=== PATIENT | female | born 1940 | race African-American/Black ===

== ENCOUNTER 2017-10-03 10:56 | Observation (INO) | payer MEDICARE, OTHER ==
[2017-10-03 12:04] LABS: Hemoglobin 11.2 g/dL (12.0-16.0); Mean Corpuscular HGB CONC 29.7 g/dL (32.0-36.0); Mean Corpuscular Hemoglobin 29.3 pg (27.0-31.0); Mean Corpuscular Volume 98.7 fl (81.0-99.0); Mean Platelet Volume 8.5 fL (7.4-10.4); Platelet Count 143 thou/uL (130-400); RBC Distribution Width 11.5 % (11.5-14.5); Red Blood Cell (RBC) Count 3.81 mill/uL (4.20-5.40); White Blood Cell (WBC) Count 5.4 thou/uL (4.8-10.8)
--- NOTE | 2017-10-03 12:11 | RAD ---
PORTABLE CHEST 1 VIEW: DATE: 10/03/17. TIME: 11:20 a.m. HISTORY: Comparison is made to the exam of 06/09/17. The heart size is prominent. The lungs are well expanded without focal areas of consolidation, pneum othorax, ha pulmonary edema, or pleural effusions. There are degenerative changes in the spine. IMPRESSION: No acute process. POS: CHAZ
[2017-10-03 12:23] LABS: ALT (SGPT) 121 U/L (8-55); AST (SGOT) 127 U/L (5-34); Albumin 3.5 g/dL (3.4-4.8); Alkaline Phosphatase 656 U/L (40-150); Anion Gap 17 mmol/L (10-20); BUN (Urea Nitrogen) 35 mg/dL (9.8-20.1); Bilirubin, Total 0.6 mg/dL (0.2-1.2); Calc. Creatinine Clearance 0 mL/min (70-130); Calcium 9.5 mg/dL (7.8-10.44); Carbon Dioxide 17 mmol/L (23-31); Chloride 112 mmol/L (98-107); Estimated GFR-MDRD 27; Globulin 3.5 g/dL (2.4-3.5); Glucose 126 mg/dL (83-110); Potassium 4.2 mmol/L (3.5-5.1); Sodium 142 mmol/L (136-145)
[2017-10-03 12:24] LABS: #Lymphocytes 1.1 thou/uL (1.20-3.40); #Monocytes 0.7 thou/uL (0.11-0.59); #Neutrophils 3.6 thou/uL (1.40-6.50); %Basophils 0.3 % (0.0-1.0); %Eosinophils 0.5 % (0.0-10.0); %Lymphocytes 19.5 % (21.0-51.0); %Monocytes 12.9 % (0.0-10.0); %Neutrophils 66.9 % (42.0-75.0); MDiff Complete? YES; PLT Morphology Comment Appears Adequate; Polychromasia SLIGHT = 2-3 cells (100X) (0-2/hpf)
[2017-10-03 13:01] LABS: Bilirubin Small (Negative); Blood, Urine Negative (Negative); Clarity CLOUDY (Clear); Glucose, Urine (Dipstick) Negative (Negative); Leukocyte Negative (Negative); Nitrite Negative (Negative); Protein, Urine (Dipstick) 100 mg/dL (Neg-Trace); Specific Gravity, Urine 1.021 (1.002-1.036); pH, Urine 5.5 (5.0-9.0)
[2017-10-03 13:04] LABS: Bacteria/HPF None Seen HPF (None Seen); RBC/HPF 0-3 HPF (0-3); Squamous Epithelial 0-3 HPF (0-3); WBC/HPF 0-3 HPF (0-3)
[2017-10-03 13:06] LABS: Pathc Cast-AUWi Flag 3.25 (0-2.49); Yeast-AUWi Flag 29.8 (0-25.0)
[2017-10-03] MEDS ORDERED: Oseltamivir 75 MG CAP PO SCH (13:15)
[2017-10-03 13:19] LABS: Crystals/HPF 2+ AMORPH URATES HPF (Negative); Hyaline Casts/LPF 0-3 HYALINE CAST LPF (0-3 Hyaline); Other Casts/LPF 4-6 COARSE GRAN LPF (0-3 Hyaline); Yeast-All Forms None Seen HPF (None Seen)
--- NOTE | 2017-10-03 15:54 | ULT ---
ULTRASOUND ABDOMEN LIMITED: (RIGHT UPPER QUADRANT) DATE: 10/03/17. HISTORY: A 77-year-old female with fever. Dementia. FINDINGS: The patient is combative, and this is a technically difficult examination. The liver has diffusely h eterogeneous echotexture. The hepatic margins are diffusely mildly nodular. The pancreas is abnorma lly diffusely very hypoechoic, which is atypical for this age group. The gallbladder is surgically a bsent. There is a structure in the gallbladder fossa with echogenic mobile material in the nondepend ent portion of it, probably representing gas within a loop of proximal duodenum or colon. The right kidney is surgically absent. Common duct caliber is 5 mm. IMPRESSION: 1. Limited study because of the patient's inability to cooperate. 2. Abnormal liver, probably representing cirrhosis. Very extensive metastatic disease of the liver can also have this appearance, but cirrhosis is favored. 3. Status post cholecystectomy. 4. Status post right nephrectomy. 5. Abnormal appearance of the pancreas. Recommend correlation with serum amylase and lipase to rule out the possibility of acute pancreatitis. WILLIE Bourgeois POS: SHAY
[2017-10-03] MEDS ORDERED: Diabetic Tussin 200 MG/10 ML UDCUP PO PRN (16:29)
[2017-10-03] MEDS ORDERED: Loperamide HCl 2 MG CAP PO PRN (16:29)
[2017-10-03] MEDS ORDERED: Artificial Tears 18 DROP/0.9 ML EA EYE PRN (16:29)
[2017-10-03] MEDS ORDERED: Ondansetron HCl/PF 4 MG/2 ML Vial IVP PRN (16:29)
[2017-10-03] MEDS ORDERED: Senokot 8.6 MG TAB PO PRN (16:29)
[2017-10-03] MEDS ORDERED: Eucerin (Mineral Oil/Petrolatum,White) 30 gm Jar TOP PRN (16:29)
[2017-10-03] MEDS ORDERED: Chloraseptic Spray 180 ml Bottle PO PRN (16:29)
[2017-10-03] MEDS ORDERED: Sodium Chloride 0.65% Nasal 44 ML BOT EA NARE PRN (16:29)
[2017-10-03] MEDS ORDERED: hydrALAZINE 20 MG/ML VIAL SLOW IVP PRN (16:29)
[2017-10-03] MEDS ORDERED: Loratadine 10 MG TAB PO PRN (16:29)
[2017-10-03] MEDS ORDERED: HYDROcodone/Acetaminophen 5/325 mg Tablet PO PRN (16:29)
[2017-10-03] MEDS ORDERED: traMADol HCl 50 MG TAB PO PRN (16:29)
[2017-10-03] MEDS ORDERED: Acetaminophen 325 MG TAB PO PRN (16:29)
[2017-10-03] MEDS ORDERED: Mag-Al 1200 mg/1200 mg/30 ML UDCUP PO PRN (16:29)
[2017-10-03] MEDS ORDERED: Milk Of Magnesia 30 ML UDCUP PO PRN (16:29)
[2017-10-03] MEDS ORDERED: Ondansetron ODT 4 MG TAB PO PRN (16:29)
--- NOTE | 2017-10-03 16:30 | HP ---
PRIMARY CARE PHYSICIAN: NABEEL Chery REASON FOR ADMISSION: Acute on chronic kidney failure, abnormal LFT, influenza A. HISTORY OF PRESENT ILLNESS: A 77-year-old -[place] female who was brought to emergency room by family member because she is having upper respiratory infections for last 1 week. For the last 2 days, she has increasing cough and shortness of breath. She was having fever. Family member reports that patient's son was having flu-like illness and subsequently she was also affected. For the last 1 week, patient was not eating significant enough and she was also not drinking enough. She did not have any nausea, vomiting, diarrhea. She did not have any abdominal pain, melena, hematochezia. Dominick drake denies any sore throat. The patient denies any urinary tract infection symptoms. Patient is n onverbal and the patient is not able to provide any history, but patient's daughter is present at bed side who provided most of the history. Today in the emergency room, routine evaluation showed influenza A, acute on chronic kidney failure a nd abnormal LFT. We are keeping this patient in the hospital for observation for hydration. REVIEW OF SYSTEMS: All review of systems tried to review with the patient, but unable to review at t his point because of nonverbal status. PAST MEDICAL HISTORY: Chronic kidney disease stage III, hypertension, history of CVA, dyslipidemia, history of gout, history of intracranial bleeding after skull base fracture. PAST SURGICAL HISTORY: Cholecystectomy, hysterectomy, right arm surgery, kidney stone removal, bilat eral cataract surgery. PAST PSYCHIATRIC HISTORY: Alzheimer's dementia. SOCIAL HISTORY: Patient lives at home. She smokes cigarettes daily about half pack per day. She li ves with family. She is trying to cutdown smoking and now she reduced to smoking 3 cigarettes a day. No history of alcohol abuse. No history of illicit drug abuse. FAMILY HISTORY: Multiple, sisters has a history of diabetes, hypertension, heart disease and grandda ughter diagnosed with sarcoma. ALLERGIES: No known drug allergy. CURRENT HOME MEDICATIONS: Lipitor 20 mg p.o. at bedtime, clonidine 0.3 once a week, Lasix 20 mg p.o. daily, metoprolol 25 mg p.o. b.i.d., amlodipine 5 mg twice daily, risperidone 1 mg p.o. at bedtime. EMERGENCY ROOM COURSE: Patient has received Tamiflu and IV fluid 2 liter. PHYSICAL EXAMINATION: VITAL SIGNS: Currently, blood pressure 183/57, pulse 73, respiratory rate 22, temperature 98.1, satu ration 100% on room air, weight 54.4 kilograms. GENERAL: Patient is currently alert, awake, no acute distress, appears dehydrated, hypertensive, non verbal. HEAD: Normocephalic, atraumatic. EYES: Pupils round, reactive to light. Extraocular muscle intact. ENT: Dry appearing mucous membranes. No oral lesions. No pharyngeal erythema, no exudate. NECK: Supple, no JVD, no thyromegaly, no carotid bruit, no jugular venous distention. LUNGS: Clear to auscultation without any rhonchi or rales. CARDIAC: S1 and S2 regular. Systolic murmur present parasternal area. No gallop, no rub. ABDOMEN: Soft, bowel sounds present. On deep palpation in the right upper quadrant, patient does no t have any tenderness or masses. No peritoneal signs, no suprapubic tenderness. BACK: Examination unremarkable, no CVA tenderness. EXTREMITIES: Upper extremity; passive movements of all joints are normal. Lower extremity; passive movements of all joints are normal. NEUROLOGIC: The patient does have left-sided residual weakness. Her speech is absent. She withdraw s to pain. Detailed neurological examination is not possible because of nonverbal status. SKIN: No skin rash. PSYCHIATRIC: Normal affect. IMAGING DATA AND SIGNIFICANT LABORATORY DATA: 1. EKG based on my review reveals normal sinus rhythm, LVH, left atrial enlargement. 2. Chest x-ray based on my review, no acute cardiopulmonary process. 3. CBC: WBC 5.4, hemoglobin 11.2, platelets 143. 4. BMP: Sodium 142, potassium 4.2, chloride 112, carbon dioxide 17, anion gap 17, BUN 35, creatinin e 2.13, glucose 126, calcium 9.5. 5. LFT: AST 127, ALT 21, alkaline phosphatase 656, albumin 3.5. Urinalysis unremarkable. Influenz a A positive. ASSESSMENT AND PLAN/IMPRESSION: 1. Acute on chronic kidney failure, baseline chronic kidney disease stage 3. Most likely prerenal e tiology. The patient has poor p.o. intake that might have contributed to her renal insufficiency. T he patient will need hydration. At this point, we will start dextrose half normal saline at 75 mL pe r hour and we will repeat BMP tomorrow. The patient has baseline chronic kidney disease stage 3. 2. Hyperchloremic acidosis. Because of this, we will try to use dextrose with normal saline and reddy snider also continue with sodium bicarbonate 325 mg p.o. b.i.d. We will repeat BMP tomorrow. 3. Abnormal liver function tests. Etiology uncertain, but patient has worsening of LFT, most likely related with Lipitor use. We will rule out CBD dilatation. This patient already has cholecystectom y done. Patient does not have any tenderness, does not have any fever, cholangitis unlikely. We reddy agatha repeat LFTs tomorrow and we will also check hepatitis profile. 4. Influenza A. Based on renal dose, we will continue Tamiflu 75 mg p.o. daily. 5. Moderate protein calorie malnutrition. The patient will need nutritional support while in hospit al. 6. Hypertension. We will continue amlodipine 5 mg p.o. b.i.d., Catapres patch every week, metoprolo l 25 mg twice daily and we will use p.r.n. basis hydralazine and clonidine. 7. Dyslipidemia. Because of abnormal liver function tests, we will hold on Lipitor therapy only for today and will repeat liver function test tomorrow and then we will start that medication. 8. Deep venous thrombosis prophylaxis not needed because we are expecting discharge in 24 hours. 9. Gastrointestinal prophylaxis, Pepcid 20 mg p.o. daily. CODE STATUS: The patient is FULL CODE and patient's daughter is surrogate decision maker. Disposition plan based on clinical course. At this point, we are starting with observation status, b ut if the patient's condition does not improve, then we will consider changing to inpatient status. Plan of care discussed with the patient and family member at bedside in the emergency room.
[2017-10-03 18:08] LABS: Creatinine, Urine 177.83 mg/dL (47-110)
[2017-10-03] MEDS: Dextrose 5 %-0.45 % NaCl 1,000 ML IV SCH (18:24)
[2017-10-03] MEDS: Sodium Bicarbonate Tab 325 MG TAB PO SCH (21:09)
[2017-10-03] MEDS: Metoprolol Tartrate 25 MG TAB PO SCH (21:09)
[2017-10-03] MEDS: Amlodipine 5 MG TAB PO SCH (21:09)
[2017-10-03] MEDS: cloNIDine 0.1 MG TAB PO PRN (21:11)
[2017-10-04] MEDS: Dextrose 5 %-0.45 % NaCl 1,000 ML IV SCH ×2 (05:34→21:49)
[2017-10-04 05:55] LABS: #Eosinphils 0.1 thou/uL (0.0-0.7); #Lymphocytes 0.9 thou/uL (1.20-3.40); #Monocytes 0.3 thou/uL (0.11-0.59); #Neutrophils 1.6 thou/uL (1.40-6.50); %Basophils 1.3 % (0.0-1.0); %Eosinophils 2.5 % (0.0-10.0); %Lymphocytes 29.8 % (21.0-51.0); %Monocytes 11.6 % (0.0-10.0); %Neutrophils 54.8 % (42.0-75.0); Mean Corpuscular Hemoglobin 29.8 pg (27.0-31.0); Mean Corpuscular Volume 96.2 fl (81.0-99.0); Platelet Count 121 thou/uL (130-400); RBC Distribution Width 11.3 % (11.5-14.5); Red Blood Cell (RBC) Count 3.03 mill/uL (4.20-5.40); White Blood Cell (WBC) Count 2.8 thou/uL (4.8-10.8)
[2017-10-04 06:10] LABS: ALT (SGPT) 84 U/L (8-55); AST (SGOT) 79 U/L (5-34); Albumin 2.8 g/dL (3.4-4.8); Alkaline Phosphatase 530 U/L (40-150); Anion Gap 10 mmol/L (10-20); BUN (Urea Nitrogen) 29 mg/dL (9.8-20.1); Bilirubin, Total 0.4 mg/dL (0.2-1.2); Calc. Creatinine Clearance 0 mL/min (70-130); Calcium 8.5 mg/dL (7.8-10.44); Carbon Dioxide 20 mmol/L (23-31); Chloride 116 mmol/L (98-107); Estimated GFR-MDRD 31; Globulin 2.7 g/dL (2.4-3.5); Glucose 124 mg/dL (83-110); Potassium 3.9 mmol/L (3.5-5.1); Protein, Total 5.5 g/dL (6.0-8.3); Sodium 142 mmol/L (136-145)
[2017-10-04 07:24] VITALS: BMI 20.5
[2017-10-04] MEDS ORDERED: FLU VACC TS2017-18 (>65YR) 0.5 ML SYRINGE IM ONE (09:00)
[2017-10-04] MEDS: Metoprolol Tartrate 25 MG TAB PO SCH ×2 (09:15→21:47)
[2017-10-04] MEDS: Famotidine 20 MG TAB PO SCH (09:15)
[2017-10-04] MEDS: Amlodipine 5 MG TAB PO SCH ×2 (09:15→21:47)
[2017-10-04] MEDS: Sodium Bicarbonate Tab 325 MG TAB PO SCH ×2 (09:15→21:49)
[2017-10-04] MEDS: Oseltamivir 6 MG/ML ORAL SUSP PO SCH (09:32)
--- NOTE | 2017-10-04 10:16 | PDOC.PN ---
- Subjective Encounter Start Date: 10/04/17 Encounter Start Time: 07:50 Patient seen and examined. No new complaints. No overnight events - Objective Resuscitation Status: Resuscitation Status FULL:Full Resuscitation MAR Reviewed: Yes Vital Signs & Weight: Vital Signs (12 hours) Temp Pulse Resp BP BP Pulse Ox 10/04/17 09:23 97.4 F L 69 20 155/82 H 100 10/04/17 09:15 155/82 H 10/04/17 04:41 98.3 F 89 16 150/69 H 100 10/04/17 00:15 97.8 F 89 16 132/68 100 Weight Weight 119 lb 14.903 oz I&O: 10/03/17 10/04/17 10/05/17 06:59 06:59 06:59 Intake Total 2150 Balance 2150 Result Diagrams: 10/04/17 05:04 10/04/17 05:04 Radiology Reviewed by me: Yes (US abdomen) Phys Exam - Physical Examination Constitutional: NAD HEENT: PERRLA, moist MMs, sclera anicteric Neck: no JVD, supple Respiratory: no wheezing, no rales, no rhonchi Cardiovascular: RRR, no significant murmur, no rub Gastrointestinal: soft, non-tender, no distention, positive bowel sounds Musculoskeletal: no edema, pulses present Neurological: non-focal Lymphatic: no nodes Psychiatric: normal affect Skin: no rash, normal turgor Dx/Plan (1) Acute worsening of stage 3 chronic kidney disease Code(s): N18.3 - CHRONIC KIDNEY DISEASE, STAGE 3 (MODERATE) Status: Acute (2) Dehydration Code(s): E86.0 - DEHYDRATION Status: Acute (3) Hyperchloremic acidosis Code(s): E87.2 - ACIDOSIS Status: Acute (4) Influenza A Code(s): J10.1 - FLU DUE TO OTH IDENT INFLUENZA VIRUS W OTH RESP MANIFEST Status: Acute (5) Transaminitis Code(s): R74.0 - NONSPEC ELEV OF LEVELS OF TRANSAMNS & LACTIC ACID DEHYDRGNSE Status: Acute (6) Anemia, normocytic normochromic Code(s): D64.9 - ANEMIA, UNSPECIFIED Status: Chronic (7) COPD (chronic obstructive pulmonary disease) Status: Chronic Qualifiers: (8) Dyslipidemia Code(s): E78.5 - HYPERLIPIDEMIA, UNSPECIFIED Status: Chronic (9) FTT (failure to thrive) in adult Status: Chronic (10) H/O: CVA (cerebrovascular accident) Code(s): Z86.73 - PRSNL HX OF TIA (TIA), AND CEREB INFRC W/O RESID DEFICITS Status: Chronic (11) Hypertension Code(s): I10 - ESSENTIAL (PRIMARY) HYPERTENSION Status: Chronic (12) Protein-calorie malnutrition, moderate Code(s): E44.0 - MODERATE PROTEIN-CALORIE MALNUTRITION Status: Chronic (13) Tobacco abuse Code(s): Z72.0 - TOBACCO USE Status: Chronic (14) Vitamin D deficiency Code(s): E55.9 - VITAMIN D DEFICIENCY, UNSPECIFIED Status: Chronic - Plan cont current plan of care * renal function and LFT improving * will consult GI for abonormal LFT * continue IVF * supportive care * medication reviewed as below * symptomatic treatment. * will check CMP at 1 pm * possible discharge later today Review of Systems - Review of Systems Other: unable to review as pt is non verbal - Medications/Allergies Allergies/Adverse Reactions: Allergies Allergy/AdvReac Type Severity Reaction Status Date / Time Penicillins Allergy Verified 06/05/17 23:21 Medications: Current Medications Acetaminophen (Tylenol) 650 mg PO Q4H PRN PRN Reason: Headache/Fever or Pain Hydrocodone Bitart/Acetaminophen ([place] 5/325) 1 tab PO Q4H PRN PRN Reason: Moderate Pain (4-6) Al Hydroxide/Mg Hydroxide (Maalox) 30 ml PO Q6H PRN PRN Reason: Heartburn or Indigestion Albuterol/Ipratropium (Duoneb) 3 ml NEB [id number] PRN PRN Reason: SOB &/or Wheezing Amlodipine Besylate (Norvasc) 5 mg PO BID [facility] Last Admin: 10/04/17 09:15 Dose: 5 mg Artificial Tears (Tears Naturale) 0 drop EA EYE PRN PRN PRN Reason: Dry Eyes Aspirin (Aspirin Chewable) 81 mg PO DAILY [facility] Last Admin: 10/04/17 09:15 Dose: 81 mg Clonidine (Catapres) 0.1 mg PO Q4H PRN PRN Reason: SBP GREATER THAN 160 Last Admin: 10/03/17 21:11 Dose: 0.1 mg Clonidine (Hcdamjis-Vdj-7) 0.3 mg TD Q7DAYS [facility] Famotidine (Pepcid) 20 mg PO DAILY [facility] Last Admin: 10/04/17 09:15 Dose: 20 mg Guaifenesin (Robitussin Sf) 200 mg PO Q4H PRN PRN Reason: Cough Hydralazine HCl (Apresoline) 10 mg SLOW IVP Q4H PRN PRN Reason: Systolic BP > 180 Dextrose/Sodium Chloride (D5 1/2 Ns) 1,000 mls @ 75 mls/hr IV .[id number] [facility] Last Admin: 10/04/17 05:34 Dose: 1,000 mls Loperamide HCl (Imodium) 2 mg PO PRN PRN PRN Reason: Diarrhea/Loose Stools Loratadine (Claritin) 10 mg PO DAILYPRN PRN PRN Reason: Sinus Symptoms Magnesium Hydroxide (Milk Of Magnesium) 30 ml PO DAILYPRN PRN PRN Reason: Constipation Metoprolol Tartrate (Lopressor) 25 mg PO BID [facility] Last Admin: 10/04/17 09:15 Dose: 25 mg Mineral Oil/White Petrolatum (Eucerin Cream) 0 gm TOP BIDPRN PRN PRN Reason: Dry Skin Ondansetron HCl (Zofran Odt) 4 mg PO Q6H PRN PRN Reason: Nausea/Vomiting Ondansetron HCl (Zofran) 4 mg IVP Q6H PRN PRN Reason: Nausea/Vomiting Oseltamivir Phosphate (Tamiflu) 30 mg PO DAILY [facility] Stop: 10/13/17 09:01 Last Admin: 10/04/17 09:32 Dose: 30 mg Phenol (Chloraseptic [place] 180 Ml Bot) 0 ml PO PRN PRN PRN Reason: Sore Throat Senna (Senokot) 2 tab PO HSPRN PRN PRN Reason: Constipation Sodium Bicarbonate (Bicarbonate, Sodium) 325 mg PO BID [facility] Last Admin: 10/04/17 09:15 Dose: 325 mg Sodium Chloride ([place] Nasal [place] 0.65%) 0 ml EA NARE QIDPRN PRN PRN Reason: Nasal Congestion Tramadol HCl (Ultram) 50 mg PO Q6H PRN PRN Reason: Moderate Pain (4-6)
--- NOTE | 2017-10-04 11:20 | DIS ---
PRIMARY CARE PHYSICIAN: [facility] call admission. DATE OF ADMISSION: 10/03/2017 DATE OF DISCHARGE: 10/04/2017 DISCHARGE DISPOSITION: Home. PRIMARY DISCHARGE DIAGNOSES: 1. Acute on chronic kidney failure, baseline chronic kidney disease stage 3. 2. Dehydration. 3. Hyperchloremic acidosis. 4. Influenza A. 5. Abnormal liver function tests related with cirrhosis. SECONDARY DISCHARGE DIAGNOSES: Vitamin D deficiency, tobacco abuse disorder, moderate protein calori e malnutrition, hypertension, history of CVA with a nonverbal status, failure to thrive, dyslipidemia , COPD, anemia, normocytic, normochromic, chronic kidney disease stage 3. PRIMARY PROCEDURE/OPERATION: None. RADIOLOGICAL INVESTIGATION: Abdominal ultrasound suspected cirrhosis. chest x-ray was normal. Influenza A was positive. SIGNIFICANT LABS: WBC 2.8, hemoglobin 9.0, platelets 121. Sodium 142, potassium 3.9, BUN 29, creati nine 1.88, calcium 8.5, AST 79, ALT 84, alkaline phosphatase 530, albumin 2.8. Urinalysis unremarkab le. Urine protein 107, urine creatinine 177. Urine sodium 32. DISCHARGE MEDICATIONS: Norvasc 5 mg p.o. b.i.d., aspirin 81 mg p.o. daily, clonidine 0.3 mg transder mal every week, Lipitor 20 mg p.o. at bedtime, Pepcid 20 mg p.o. daily, Lopressor 25 mg p.o. b.i.d., Tamiflu 30 mL p.o. daily for 5 days, risperidone 1 mg sublingual p.o. at bedtime, sodium bicarbonate 325 mg p.o. b.i.d. CONTRAINDICATIONS: None. CODE STATUS: FULL CODE. INPATIENT CONSULTANTS: KATY Madison for abnormal liver function tests. ALLERGIES: PENICILLIN. TEST RESULTS PENDING ON DISCHARGE: None. DISCHARGE PLAN: Post hospital, the patient will follow up with primary care physician. HOSPITAL COURSE: A 77-year-old female who has nonverbal status from previous stroke. She was bob t to the ER because the patient was becoming more and more weak. She was dehydrated. She was having cough and fever. Her influenza A was positive. She was clinically dehydrated. She also had abnorm al LFTs and that is why ultrasound was done. Ultrasound showed cirrhotic type findings and that is w hy we consulted GI before discharge for his opinion. The patient's LFTs are improving and renal func tion is improving with IV fluid as well. We will repeat CMP at 1:00 p.m. and if it continues to improve and GI okay, then we will consider dis charging her home with outpatient followup. The patient and family members advised to take care of h er dehydration with oral intake. Nutritional support advised. Smoking cessation counseling given. The patient seen and examined at bedside. Please see my progress note from today for further details . ADDENDUM: (10/05/17 at 11:04 am) This patient was planned for discharge yesterday, but GI was consu lted for her abnormal LFTs and looking at her old record, she has abnormal LFT for a long period of t yadira. Now she has suspected cirrhosis and that is why necessary workup can be done on an outpatient b asis. The patient will follow up with conservation educator for further evaluation. The patient is currently medically stable for discharge. Please see my progress note from today for further details. The patient is seen and examined at the bedside today.
[2017-10-04 13:38] LABS: ALT (SGPT) 83 U/L (8-55); AST (SGOT) 83 U/L (5-34); Albumin 2.6 g/dL (3.4-4.8); Alkaline Phosphatase 523 U/L (40-150); Anion Gap 9 mmol/L (10-20); BUN (Urea Nitrogen) 27 mg/dL (9.8-20.1); Bilirubin, Total 0.3 mg/dL (0.2-1.2); Calc. Creatinine Clearance 22 mL/min (70-130); Calcium 8.3 mg/dL (7.8-10.44); Carbon Dioxide 20 mmol/L (23-31); Chloride 115 mmol/L (98-107); Estimated GFR-MDRD 34; Globulin 2.6 g/dL (2.4-3.5); Glucose 113 mg/dL (83-110); Potassium 3.8 mmol/L (3.5-5.1); Protein, Total 5.2 g/dL (6.0-8.3); Sodium 140 mmol/L (136-145)
--- NOTE | 2017-10-04 22:01 | CON ---
DATE OF CONSULTATION: 10/04/2017 REASON FOR CONSULTATION: Transaminitis. CONSULTING PHYSICIAN: Dr. Prashanth Montoya. HISTORY OF PRESENT ILLNESS: The patient is a 77-year-old female with past medical history of vitamin D deficiency, hyperlipidemia, hypertension, CVA, chronic kidney disease stage 3, chronic obstructive pulmonary disease, failure to thrive with moderate calorie deficiency, gout, Alzheimer's dementia, and chronic transaminitis. Initially presenting with complaints of increased cough and shortness of breath. Upon evaluation in the ER, she was noted to have fever and was ultimately positive for influenza A. She was ultimately admitted to the hospital for observation and rehydration due to poor oral intake. Upon evaluation of routine labs obtained in the ER, she was noted to have a mild transaminitis indicative of liver inflammation with consultation of GI at that time. Of note, patient was seen in the outpatient GI clinic in 02/2012 for elevated LFTs. A workup was ordered at that time, but the patient never followed up nor obtain the labs for evaluation. Also, of note, per nursing staff, they state that she has been having increased diarrhea bowel movements with approximately 3 to 5 liquid bowel movements today with minimal amounts of mucus. REVIEW OF SYSTEMS: Cannot be obtained due to the nature of the patient's dementia. PAST MEDICAL HISTORY: As per HPI. PAST SURGICAL HISTORY: Cholecystectomy, hysterectomy, right arm surgery, kidney stone removal, bilateral cataract surgery. FAMILY HISTORY: Diabetes, hypertension, heart disease, sarcoma, no stated GI malignancies. SOCIAL HISTORY: She smokes about a half pack of cigarettes daily. No history of alcohol abuse or illicit drug use. ALLERGIES: No known drug allergies. CURRENT HOME MEDICATIONS: Lipitor 20 mg at bedtime, clonidine 0.3 mg once a week, Lasix 20 mg daily, metoprolol 25 mg twice daily, amlodipine 5 mg twice daily, risperidone 1 mg at bedtime. INPATIENT MEDICATIONS: Reviewed. PHYSICAL EXAMINATION: VITAL SIGNS: Temperature 97.3, pulse 66, blood pressure 166/67, respiratory rate 14, satting 100% on room air. GENERAL: The patient is alert, awake, in no acute distress. Patient is oriented x2. HEENT: Normocephalic, atraumatic. Pupils are equal, round, reactive to light. Extraocular movements intact. NECK: Supple, with no discernible JVD. CARDIOVASCULAR: Regular rate and rhythm with no discernible murmurs, gallops, or rubs. RESPIRATORY: Clear to auscultation bilaterally with no discernible wheezes or rales. ABDOMEN: Soft, nontender, nondistended. Normoactive bowel sounds. No hepatosplenomegaly noted. EXTREMITIES: No cyanosis, clubbing, or edema. LABORATORY DATA: CBC with a white blood cell count of 2.8, hemoglobin 9, hematocrit 29.1, platelets 121. Chemistry with a sodium of 140, potassium 3.8, chloride 115, carbon dioxide 20, BUN 27, creatinine 1.75, glucose 113, AST 83, ALT 83, alkaline phosphatase 523, total bilirubin 0.3. IMAGING STUDIES: Right upper quadrant ultrasound obtained on 10/03/2017 showing diffusely heterogeneous echotexture within the liver with a diffusely mildly nodular contour. The gallbladder was surgically absent with echogenic mobile material within the gallbladder fossa, possibly representing a cast within a loop of proximal duodenum or colon. Right kidney is surgically absent. Common bile duct is approximately 5 mm. However, the study was limited due to the patient's inability to cooperate with a technically difficult examination. ASSESSMENT AND PLAN: Patient is a 77-year-old female with past medical history of vitamin D deficiency, hyperlipidemia, hypertension, CVA, chronic kidney disease stage 3, COPD, gout, failure to thrive, Alzheimer's dementia, and chronic transaminitis presenting with continued elevation in LFTs. Transaminitis Patient is presenting with a chronic history of transaminitis with mild elevation in AST, ALT and alkaline phosphatase that has been present since at least February 2012 when she was seen in the outpatient GI clinic. Workup was ordered at that time with patient unable to comply with completion of this workup. Currently, the degree of transaminitis is more consistent with a cholestatic pattern. Given the significant elevation in alkaline phosphatase, however, with thrombocytopenia and nodular morphology on right upper quadrant ultrasound it is concerning for presence of cirrhosis. Current INR is unable to be reviewed making calculation of MELD and Child-Duenas classification difficult. Extensive workup was ordered in 2011, but never obtained so would recommend obtaining full liver workup at this time, given the chronic elevation in transaminases predominantly alkaline phosphatase. RECOMMENDATIONS: 1. Would obtain full liver workup to obtain labs including alpha 1 antitrypsin , NOMI, AMA, ceruloplasmin, iron profile with ferritin and TIBC. Chronic hepatitis panel, ASMA, and obtain alkaline phosphatase isoenzymes to determine if degree of elevation is consistent with liver origin. 2. Based on the above workup with tailored treatment toward possible infected condition; however, with patient's advanced age and advanced Alzheimer's dementia treatment for chronic hepatitis C, and/or liver transplantation is most likely unavailable. 3. We will continue to trend INR and would perform neuro checks daily for determination of possible encephalopathy and worsening of the liver disease. 4. Patient is stable for discharge and follow up in the GI clinic within 2 weeks MTDD
[2017-10-05] MEDS: cloNIDine 0.1 MG TAB PO PRN (02:14)
[2017-10-05] MEDS: Dextrose 5 %-0.45 % NaCl 1,000 ML IV SCH (09:12)
[2017-10-05] MEDS: Sodium Bicarbonate Tab 325 MG TAB PO SCH (09:14)
[2017-10-05] MEDS: Amlodipine 5 MG TAB PO SCH (09:14)
[2017-10-05] MEDS: Famotidine 20 MG TAB PO SCH (09:15)
[2017-10-05] MEDS: Oseltamivir 6 MG/ML ORAL SUSP PO SCH (09:15)
[2017-10-05] MEDS: Metoprolol Tartrate 25 MG TAB PO SCH (09:15)
--- NOTE | 2017-10-05 10:31 | PDOC.PN ---
- Subjective Encounter Start Date: 10/05/17 Encounter Start Time: 09:10 Patient seen and examined. No new complaints. No overnight events - Objective Resuscitation Status: Resuscitation Status FULL:Full Resuscitation MAR Reviewed: Yes Vital Signs & Weight: Vital Signs (12 hours) Temp Pulse Resp BP BP Pulse Ox 10/05/17 09:14 72 158/69 H 10/05/17 08:53 97.4 F L 72 16 10/05/17 08:00 97.4 F L 72 16 158/69 H 98 10/05/17 03:39 97.7 F 66 16 147/67 H 100 10/05/17 02:14 167/74 H 10/05/17 00:21 97.7 F 66 16 167/74 H 100 Weight Weight 119 lb 14.903 oz I&O: 10/04/17 10/05/17 10/06/17 06:59 06:59 06:59 Intake Total 2150 1190 Balance 2150 1190 Result Diagrams: 10/04/17 05:04 10/04/17 13:04 Phys Exam - Physical Examination Constitutional: NAD HEENT: PERRLA, moist MMs, sclera anicteric Neck: no JVD, supple Respiratory: no wheezing, no rales, no rhonchi Cardiovascular: RRR, no significant murmur Gastrointestinal: soft, non-tender, no distention, positive bowel sounds Musculoskeletal: no edema, pulses present Lymphatic: no nodes Psychiatric: normal affect Skin: normal turgor Dx/Plan (1) Acute worsening of stage 3 chronic kidney disease Code(s): N18.3 - CHRONIC KIDNEY DISEASE, STAGE 3 (MODERATE) Status: Acute (2) Dehydration Code(s): E86.0 - DEHYDRATION Status: Acute (3) Hyperchloremic acidosis Code(s): E87.2 - ACIDOSIS Status: Acute (4) Influenza A Code(s): J10.1 - FLU DUE TO OTH IDENT INFLUENZA VIRUS W OTH RESP MANIFEST Status: Acute (5) Transaminitis Code(s): R74.0 - NONSPEC ELEV OF LEVELS OF TRANSAMNS & LACTIC ACID DEHYDRGNSE Status: Acute (6) Anemia, normocytic normochromic Code(s): D64.9 - ANEMIA, UNSPECIFIED Status: Chronic (7) COPD (chronic obstructive pulmonary disease) Status: Chronic Qualifiers: (8) Dyslipidemia Code(s): E78.5 - HYPERLIPIDEMIA, UNSPECIFIED Status: Chronic (9) FTT (failure to thrive) in adult Status: Chronic (10) H/O: CVA (cerebrovascular accident) Code(s): Z86.73 - PRSNL HX OF TIA (TIA), AND CEREB INFRC W/O RESID DEFICITS Status: Chronic (11) Hypertension Code(s): I10 - ESSENTIAL (PRIMARY) HYPERTENSION Status: Chronic (12) Protein-calorie malnutrition, moderate Code(s): E44.0 - MODERATE PROTEIN-CALORIE MALNUTRITION Status: Chronic (13) Tobacco abuse Code(s): Z72.0 - TOBACCO USE Status: Chronic (14) Vitamin D deficiency Code(s): E55.9 - VITAMIN D DEFICIENCY, UNSPECIFIED Status: Chronic - Plan * medication reviewed as below * symptomatic treatment * see discharge summery form yesterday. . Review of Systems - Review of Systems Other: unable to review due to non verbal status - Medications/Allergies Allergies/Adverse Reactions: Allergies Allergy/AdvReac Type Severity Reaction Status Date / Time Penicillins Allergy Verified 06/05/17 23:21 Medications: Current Medications Acetaminophen (Tylenol) 650 mg PO Q4H PRN PRN Reason: Headache/Fever or Pain Hydrocodone Bitart/Acetaminophen (Emblem 5/325) 1 tab PO Q4H PRN PRN Reason: Moderate Pain (4-6) Al Hydroxide/Mg Hydroxide (Maalox) 30 ml PO Q6H PRN PRN Reason: Heartburn or Indigestion Albuterol/Ipratropium (Duoneb) 3 ml NEB N2DC-PH PRN PRN Reason: SOB &/or Wheezing Amlodipine Besylate (Norvasc) 5 mg PO BID [facility] Last Admin: 10/05/17 09:14 Dose: 5 mg Artificial Tears (Tears Naturale) 0 drop EA EYE PRN PRN PRN Reason: Dry Eyes Aspirin (Aspirin Chewable) 81 mg PO DAILY [facility] Last Admin: 10/05/17 09:15 Dose: 81 mg Clonidine (Catapres) 0.1 mg PO Q4H PRN PRN Reason: SBP GREATER THAN 160 Last Admin: 10/05/17 02:14 Dose: 0.1 mg Clonidine (Owsjibyq-Ask-3) 0.3 mg TD Q7DAYS [facility] Famotidine (Pepcid) 20 mg PO DAILY [facility] Last Admin: 10/05/17 09:15 Dose: 20 mg Guaifenesin (Robitussin Sf) 200 mg PO Q4H PRN PRN Reason: Cough Hydralazine HCl (Apresoline) 10 mg SLOW IVP Q4H PRN PRN Reason: Systolic BP > 180 Dextrose/Sodium Chloride (D5 1/2 Ns) 1,000 mls @ 75 mls/hr IV .[id number] [facility] Last Admin: 10/05/17 09:12 Dose: Not Given Loperamide HCl (Imodium) 2 mg PO PRN PRN PRN Reason: Diarrhea/Loose Stools Loratadine (Claritin) 10 mg PO DAILYPRN PRN PRN Reason: Sinus Symptoms Magnesium Hydroxide (Milk Of Magnesium) 30 ml PO DAILYPRN PRN PRN Reason: Constipation Metoprolol Tartrate (Lopressor) 25 mg PO BID [facility] Last Admin: 10/05/17 09:15 Dose: 25 mg Mineral Oil/White Petrolatum (Eucerin Cream) 0 gm TOP BIDPRN PRN PRN Reason: Dry Skin Ondansetron HCl (Zofran Odt) 4 mg PO Q6H PRN PRN Reason: Nausea/Vomiting Ondansetron HCl (Zofran) 4 mg IVP Q6H PRN PRN Reason: Nausea/Vomiting Oseltamivir Phosphate (Tamiflu) 30 mg PO DAILY [facility] Stop: 10/13/17 09:01 Last Admin: 10/05/17 09:15 Dose: 30 mg Phenol (Chloraseptic [place] 180 Ml Bot) 0 ml PO PRN PRN PRN Reason: Sore Throat Senna (Senokot) 2 tab PO HSPRN PRN PRN Reason: Constipation Sodium Bicarbonate (Bicarbonate, Sodium) 325 mg PO BID [facility] Last Admin: 10/05/17 09:14 Dose: 325 mg Sodium Chloride ([place] Nasal [place] 0.65%) 0 ml EA NARE QIDPRN PRN PRN Reason: Nasal Congestion Tramadol HCl (Ultram) 50 mg PO Q6H PRN PRN Reason: Moderate Pain (4-6)
[2017-10-05 12:55] VITALS: BP 166/64; TEMP 97.6
[2017-10-05 13:13] LABS: Prothrombin Time 12.8 SEC (12.0-14.7)
[2017-10-05 13:46] LABS: Iron Binding Capacity, Total 224 mcg/dL (265-497)
[2017-10-05 13:47] LABS: Iron 34 ug/dL (50-170)
[2017-10-05 14:04] LABS: Ferritin 203.77 ng/mL (10-291)
[2017-10-05 14:16] LABS: HBSAB Concentration 0.88 mIU/mL; HBSAg Index 0.19 S/CO (0-0.99); Hep B Core Total Ab Non-Reactive (NonReactive); Hep B Core Total Index 0.06 S/CO (0-0.79); Hep B Surf AB Non-Reactive (NonReactive); Hep B Surf Ag Non-Reactive S/CO (NonReactive); Hep C IgG Ab Non-Reactive (NonReactive); Hep C Index 0.12 S/CO (0-0.79)
[2017-10-06 07:25] LABS: Antinuclear AB Negative (Negative)
[2017-10-07 16:13] LABS: Mitochondrial (M2) Antibody SO 5.2 Units (0.0-20.0)
[2017-10-10] MEDS ORDERED: cloNIDine 0.3mg/24 Hour PATCH TD SCH (09:00)
== END 2017-10-05 14:59 | disposition home or self-care (01) ==
LOC: ERS 10:56 → SURG A 16:08
PROVIDERS: ADMIT Internal Medicine; ATTEND Internal Medicine
DX: J10.1 Influenza due to other identified influenza virus with other respiratory manifestations (principal); I12.9 Hypertensive chronic kidney disease with stage 1 through stage 4 chronic kidney disease, or unspecified chronic kidney disease; N18.3 Chronic kidney disease, stage 3 (moderate); N17.9 Acute kidney failure, unspecified; E78.5 Hyperlipidemia, unspecified; M10.9 Gout, unspecified; G30.9 Alzheimer's disease, unspecified; F02.80 Dementia in other diseases classified elsewhere, unspecified severity, without behavioral disturbance, psychotic disturbance, mood disturbance, and anxiety; F17.210 Nicotine dependence, cigarettes, uncomplicated; N25.89 Other disorders resulting from impaired renal tubular function; E44.0 Moderate protein-calorie malnutrition; Z68.20 Body mass index [BMI] 20.0-20.9, adult; Z88.0 Allergy status to penicillin; Z79.899 Other long term (current) drug therapy; Z98.41 Cataract extraction status, right eye; Z98.42 Cataract extraction status, left eye; Z90.49 Acquired absence of other specified parts of digestive tract; Z90.710 Acquired absence of both cervix and uterus; Z98.890 Other specified postprocedural states; Z86.73 Personal history of transient ischemic attack (TIA), and cerebral infarction without residual deficits
CPT/HCPCS: 51701; 71045; 76705; 80053 ×3; 82103; 82390; 82570; 82728; 83516 ×2; 83540; 83550; 83605; 84075; 84156; 84300; 85025 ×2; 85610; 86038; 86704; 86706; 86803; 87340; 87804 ×2; 93005; 94760; 96360; 96361 ×3; 99285; G0378; 36415; 81003; 81015; A4353; J0360

== ENCOUNTER 2017-10-26 22:30 | Inpatient (IN) | payer MEDICARE, OTHER ==
[2017-10-26 22:55] LABS: Actual Bicarbonate (HCO3a) 18.8 mEq/L (22-26); Base Excess (BEa) -4.9 mEq/L (0 (+/-) 2.5); CO2 Tension 29.3 mmHg (35.0-45.0); Hematocrit-ABG 25.2 % (36.0-47.0); Hemoglobin (Hb) 8.3 g/dL (12.0-16.0); O2 Tension (PaO2) 389.8 mmHg (80.0-100.0); pH, Arterial 7.43 (7.35-7.45)
[2017-10-26 22:56] LABS: ALV-art Gradient 286.575 (0-20); Analyzer IN Cardio ER; Calcium, Ionized 1.2 mmol/L (1.12-1.30); Puncture Site RRA
[2017-10-26 23:00] LABS: #Basophils 0.2 thou/uL (0.0-0.2); #Eosinphils 0.1 thou/uL (0.0-0.7); #Lymphocytes 0.5 thou/uL (1.20-3.40); #Monocytes 0.3 thou/uL (0.11-0.59); %Basophils 1.8 % (0.0-1.0); %Eosinophils 0.9 % (0.0-10.0); %Lymphocytes 4.5 % (21.0-51.0); %Monocytes 2.3 % (0.0-10.0); %Neutrophils 90.6 % (42.0-75.0); Hemoglobin 8.9 g/dL (12.0-16.0); Mean Corpuscular HGB CONC 31.6 g/dL (32.0-36.0); Mean Corpuscular Hemoglobin 29.7 pg (27.0-31.0); Mean Platelet Volume 8.4 fL (7.4-10.4); Platelet Count 238 thou/uL (130-400); RBC Distribution Width 13.1 % (11.5-14.5); Red Blood Cell (RBC) Count 2.99 mill/uL (4.20-5.40); White Blood Cell (WBC) Count 11.1 thou/uL (4.8-10.8)
[2017-10-26 23:04] LABS: INR-International Normal Ratio 1.1; PTT 23.2 SEC (22.9-36.1); Prothrombin Time 14.6 SEC (12.0-14.7)
[2017-10-26 23:05] LABS: D-Dimer Test 3.37 *mcg/mL (0.27-0.43)
[2017-10-26 23:14] LABS: ALT (SGPT) 24 U/L (8-55); AST (SGOT) 42 U/L (5-34); Albumin 2.9 g/dL (3.4-4.8); Alkaline Phosphatase 449 U/L (40-150); Anion Gap 21 mmol/L (10-20); BUN (Urea Nitrogen) 22 mg/dL (9.8-20.1); Bilirubin, Total 0.5 mg/dL (0.2-1.2); CK (CPK) 54 U/L (29-168); Calc. Creatinine Clearance 0 mL/min (70-130); Calcium 8.6 mg/dL (7.8-10.44); Carbon Dioxide 16 mmol/L (23-31); Chloride 112 mmol/L (98-107); Estimated GFR-MDRD 30; Globulin 3.3 g/dL (2.4-3.5); Glucose 168 mg/dL (83-110); Potassium 3.4 mmol/L (3.5-5.1); Protein, Total 6.2 g/dL (6.0-8.3); Sodium 146 mmol/L (136-145)
[2017-10-26 23:17] LABS: CKMB 1.6 ng/mL (0-6.6)
--- NOTE | 2017-10-26 23:39 | CT ---
CT BRAIN 10/26/17 PROVIDED CLINICAL HISTORY: Altered mental status. FINDINGS: Comparison is made with the study dated 06/05/17. Encephalomalacia involving portions of the distributions of both the right and left middle cerebral a rteries compatible with prior infarctions are demonstrated. There is diminished attenuation involving the medial aspect of the left cerebellar hemisphere compatible with age indeterminate infarct. This is interval since the prior study. There is no evidence for intracranial hemorrhage. The ventricular system is unchanged in size and morphology. There is fluid density present in the visualized portion s of the nasopharynx. The extracranial soft tissues and osseous structures appear otherwise unremarka ble. IMPRESSION: 1. No evidence for intracranial hemorrhage or mass effect. 2. Age indeterminate left cerebellar infarct. 3. Extensive chronic ischemic change as above. POS: [facility]
--- NOTE | 2017-10-26 23:44 | CT ---
CT OF CERVICAL SPINE 10/26/17 PROVIDED CLINICAL HISTORY: Altered mental status. FINDINGS: Comparison is made with the study dated 03/13/14. There is no evidence for fracture or traumatic subluxation. There is no prevertebral soft tissue swel ling apparent. The visualized lung apices are free of significant opacity. Endotracheal tube is noted as is partially visualized enteric catheter. Fluid density is present within the oropharynx and naso pharynx. Small amount of debris or secretions are noted within the distal visualized trachea. IMPRESSION: No evidence for fracture or traumatic subluxation. POS: [facility]
--- NOTE | 2017-10-26 23:48 | RAD ---
PORTABLE CHEST 10/26/17 PROVIDED CLINICAL HISTORY: Respiratory insufficiency. FINDINGS: Comparison 10/03/17. The cardiac and mediastinal silhouette is within normal limits. Endotracheal tube is noted, the tip o f which terminates just above the level of the thoracic inlet. Enteric catheter is noted, tip of whic h projects over the left upper quadrant. There is opacity at the left lung base that may reflect atel ectasis or infiltrate. Associated pleural opacity cannot be excluded. The supine nature of this study limits the sensitivity for detection of pneumothorax without definite evidence for such. IMPRESSION: 1. ET and enteric catheter positions as above. 2. Left basilar pleural and/or parenchymal opacity may reflect atelectasis or infiltrate. Follow up is recommended. POS: [facility]
[2017-10-26 23:50] LABS: Acetaminophen Less than 6.0 mcg/mL (10.0-30.0); Alcohol Less than 10 mg/dL (Less than 10); Salicylate Less than 8.0 mg/dL (15.0-30.0)
[2017-10-27] MEDS ORDERED: hydrALAZINE 20 MG/ML VIAL ONE (00:09)
[2017-10-27 01:18] LABS: Bilirubin Negative (Negative); Blood, Urine Trace (Negative); Glucose, Urine (Dipstick) Negative (Negative); Leukocyte Negative (Negative); Nitrite Negative (Negative); Protein, Urine (Dipstick) 100 mg/dL (Neg-Trace); pH, Urine 5.5 (5.0-9.0)
[2017-10-27 01:19] LABS: Clarity Clear (Clear)
[2017-10-27 01:20] LABS: Specific Gravity, Urine 1.019 (1.002-1.036)
[2017-10-27 01:25] LABS: Medtox Reader # READER 4
[2017-10-27 01:26] LABS: Amphetamine Not Detected (NotDetected); Barbiturates Screen Not Detected (NotDetected); Benzodiazepine Screen Not Detected (NotDetected); Cocaine Metabolite Screen Not Detected (NotDetected); Medtox Control Line Valid? VALID (VALID); Methadone Not Detected (NotDetected); Methamphetamine Not Detected (NotDetected); Opiate Screen Not Detected (NotDetected); Oxycodone Screen Not Detected (NotDetected); Phencyclidine (PCP) Not Detected (NotDetected); THC/Cannabinoid Screen Not Detected (NotDetected); Tricyclic Screen Not Detected (NotDetected)
[2017-10-27 01:30] LABS: Bacteria/HPF None Seen HPF (None Seen); Hyaline Casts/LPF 0-3 HYALINE CAST LPF (0-3 Hyaline); Other Casts/LPF 0-3 MIXED CASTS LPF (0-3 Hyaline); RBC/HPF 0-3 HPF (0-3); Squamous Epithelial 0-3 HPF (0-3); WBC/HPF 0-3 HPF (0-3)
[2017-10-27] MEDS ORDERED: Acetaminophen 325 MG TAB PO PRN (01:37)
[2017-10-27] MEDS ORDERED: Ondansetron ODT 4 MG TAB SL PRN (01:37)
[2017-10-27] MEDS ORDERED: Ondansetron HCl/PF 4 MG/2 ML Vial IVP PRN ×2 (01:37→02:19)
[2017-10-27] MEDS ORDERED: Acetaminophen 650 MG Suppository PR PRN (02:19)
[2017-10-27] MEDS ORDERED: Lorazepam 2 MG/ML VIAL SLOW IVP PRN ×3 (02:19→11:18)
[2017-10-27] MEDS ORDERED: Sedation Protocol FS SCH (02:19)
[2017-10-27] MEDS ORDERED: Ventilator Sedation Protocol 1 EACH FS SCH (02:19)
[2017-10-27] MEDS ORDERED: Fentanyl 20 MCG/ML 250 ML IVPB SCH (02:25)
[2017-10-27] MEDS ORDERED: DISCONTINUE PREVIOUS NARCOTIC PAIN MEDICATIONS AND BENZODIAZEPINES FS SCH (02:25)
[2017-10-27] MEDS ORDERED: Propofol 1,000 MG/100 ML VIAL IV PRN (02:25)
[2017-10-27] MEDS ORDERED: Morphine 2 MG/ML SYRINGE SLOW IVP PRN (02:25)
[2017-10-27] MEDS: Sodium Chloride 0.9% 1,000 ML IV SCH ×2 (02:34→04:57)
--- NOTE | 2017-10-27 03:41 | HP ---
DATE OF ADMISSION: 10/27/2017 TIME OF SERVICE: 0145 hours. PRIMARY CARE PHYSICIAN: NABEEL Chery CHIEF COMPLAINT: Seizure and respiratory arrest. HISTORY OF PRESENT ILLNESS: The patient is a 77-year-old female well known to us fr om multiple previous admissions. I personally admitted here on 06/05/2018. She had multiple admissi ons since that time for acute kidney injury, fluid transaminitis, etc. The patient was brought into the emergency department today via EMS. She was found unresponsive by h er family, so EMS was called. On EMS arrival, the patient had an active tonic clonic seizure. She w as given 2 mg of IV Ativan and improved and was subsequently intubated in the field and brought into the emergency department. She remains on the ventilator. She is not on sedation at present, but abo ut 2 hours ago, she did receive 50 mg of rocuronium and 100 mg of ketamine. No history of prior seizures. There was no mention of bowel or bladder incontinence or tongue biting . No family at the bedside. Laboratory evaluation in the ER was largely unremarkable. Prolactin levels were elevated. Cardiac b iomarkers were normal. The patient was unable to give any further history. Unable to get an advance directives or code status due to lack of family present. PAST MEDICAL HISTORY: 1. Chronic kidney disease 3. 2. Hypertension. 3. Cerebrovascular disease. 4. Possible dementia. 5. Hyperlipidemia. 6. Chronic diastolic congestive heart failure. PAST SURGICAL HISTORY: Include; 1. Cholecystectomy. 2. Hysterectomy. 3. Right arm surgery. 4. Bilateral cataract replacement. 5. Renal stone removal. HOME MEDICATIONS: 1. Atorvastatin 20 mg p.o. at bedtime. 2. Clonidine TTS 3 patch change every week. 3. Lasix 20 mg p.o. daily. 4. Metoprolol tartrate 25 mg p.o. b.i.d. 5. Amlodipine 5 mg p.o. b.i.d. 6. Risperdal 1 mg p.o. daily. 7. Famotidine 20 mg p.o. q.p.m. ALLERGIES: PENICILLIN. FAMILY HISTORY: Negative for clotting disease or no immune dysfunction today recalled. SOCIAL HISTORY: Significant about anywhere from a half a pack to 3 cigarettes per day, of ongoing to bacco use. No history of IV drug use or alcohol use. REVIEW OF SYSTEMS: Unobtainable due to patient's mental status. PHYSICAL EXAMINATION: VITAL SIGNS: Temperature 96.3, pulse 110, blood pressure 102/67, respiratory rate 22, and 100% on th e ventilator on arrival. Current vital signs show a temperature on arrival to the ICU to be 98.7, cu rrent pulse 94, blood pressure 155/69 with a MAP of 104, respiratory rate 15, satting at 100% on curr ent ventilator settings. GENERAL: She is unresponsive. Pupils are minimally reactive. She does not respond withdraw from pa inful stimuli. She was recently given ketamine and paralytics. HEENT: Normocephalic and atraumatic. Pupils are 2 mm and minimally reactive. Mucous membranes are moist. She has an oral endotracheal tube in place. NECK: Supple. There is no lymphadenopathy, JVD or thyromegaly. Normal carotid upstrokes without br uits. CHEST: Lungs are clear. LUNGS: Good air movement. There is some hint of faint crackles in the right base. There is no prol onged expiratory phase. No wheezes. CARDIOVASCULAR: She is tachycardic, but regular. Normal S1 and S2. There is a faint 2/6 systolic e jection murmur at the right sternal border. ABDOMEN: Soft, nondistended, nontympanitic. There is bowel sounds present. EXTREMITIES: Show trace edema from the ankles down. She had 1+ dorsalis pedis and posterior tibial pulses. SKIN: Warm was well perfused. There is no rash or lesions. MUSCULOSKELETAL: Normal to inspection. There are no deformities. No inflamed joints and no palpabl e effusions. NEUROLOGIC: Not testable. Currently, she is not in withdrawal from painful stimuli. LABORATORY DATA: Sodium 146, potassium 3.4, chloride 112, bicarbonate 16, BUN 22, creatinine 1.94, g lucose 168. Albumin is 2.9. Alkaline phosphatase elevated 449, AST up a little bit at 82. CBC show white count of 11.1, hemoglobin 8.9, hematocrit 28.1, platelet count is 234,000. Her hemogl obin that was low, was somewhat stable. She has a slight granulocytosis with 91% neutrophils and 5% lymphocytes. ABG showed a pH 7.43, pCO2 of 29, pO2 in 380 range. ] INR is 1.1. D-dimer is elevated at 3.37. Prolactin was 131.9. Lactic acid 7.4, CK-MB of 1.6 and a troponin I borderline 0.040. X-ray: She had a chest x-ray that showed left basilar pleural parenchymal opacity. CT scan of the brain with no acute problems, but it says of chronic microvascular ischemic changes. CT scan of the C-spine showed no subluxation or deformity or evidence of fracture. ASSESSMENT AND PLAN: 1. Acute hypoxemic respiratory failure. The patient was intubated in the field. She is paralyzed a nd sedated with ketamine and rocuronium. She is not begun to wake up yet. We will continue her curr ent ventilator settings. Pulmonary Critical Care has been consulted. 2. New onset seizures: The patient did not any further seizures here. We will have Ativan availabl e. I have not loaded with Keppra or any other antiepileptics at this point. We will need to get Uriel rology involved. 3. History of hypertension. We will continue clonidine TTS 3 patch, so she will get a rebound hyper tension. We will hold the rest of her medications and use p.r.n. hydralazine. 4. Cerebrovascular disease, as above. 5. Chronic kidney disease, stage 3; creatinine currently at 1.94. The patient did have increased la ctic acid, likely from tonic clonic activity. I will hydrate her gently and recheck. 6. Possible dementia.
[2017-10-27 04:05] LABS: Lactic Acid 1.4 mmol/L (0.5-2.2)
[2017-10-27 04:24] LABS: ALT (SGPT) 34 U/L (8-55); AST (SGOT) 71 U/L (5-34); Albumin 2.9 g/dL (3.4-4.8); Alkaline Phosphatase 472 U/L (40-150); Anion Gap 16 mmol/L (10-20); BUN (Urea Nitrogen) 21 mg/dL (9.8-20.1); Bilirubin, Total 0.7 mg/dL (0.2-1.2); Calc. Creatinine Clearance 19 mL/min (70-130); Calcium 8.2 mg/dL (7.8-10.44); Carbon Dioxide 20 mmol/L (23-31); Chloride 115 mmol/L (98-107); Estimated GFR-MDRD 35; Globulin 3.3 g/dL (2.4-3.5); Glucose 144 mg/dL (83-110); Magnesium 1.8 mg/dL (1.6-2.6); Potassium 3.6 mmol/L (3.5-5.1); Protein, Total 6.2 g/dL (6.0-8.3); Sodium 147 mmol/L (136-145)
[2017-10-27] MEDS: hydrALAZINE 20 MG/ML VIAL SLOW IVP PRN ×2 (07:41→20:08)
[2017-10-27 07:59] LABS: #Lymphocytes 0.8 thou/uL (1.20-3.40); #Monocytes 0.6 thou/uL (0.11-0.59); #Neutrophils 10.6 thou/uL (1.40-6.50); %Basophils 0.1 % (0.0-1.0); %Eosinophils 0.1 % (0.0-10.0); %Lymphocytes 6.4 % (21.0-51.0); %Monocytes 4.8 % (0.0-10.0); %Neutrophils 88.5 % (42.0-75.0); Hemoglobin 8.6 g/dL (12.0-16.0); Mean Corpuscular HGB CONC 32.4 g/dL (32.0-36.0); Mean Corpuscular Hemoglobin 29.8 pg (27.0-31.0); Platelet Count 200 thou/uL (130-400); RBC Distribution Width 12.9 % (11.5-14.5); Red Blood Cell (RBC) Count 2.88 mill/uL (4.20-5.40)
[2017-10-27] MEDS: Aspirin 300 MG Suppository PR SCH (09:11)
[2017-10-27] MEDS: Famotidine/PF 20 mg/2ml Vial SLOW IVP SCH (09:11)
--- NOTE | 2017-10-27 09:36 | RAD ---
CHEST 1 VIEW: Date: 10/27/17 HISTORY: Dyspnea. Follow-up. COMPARISON: 10/26/17. FINDINGS: Cardiac silhouette is magnified by projection. Pulmonary vasculature remains upper limits of normal. Mediastinum is midline with aortic calcification. Tip of the endotracheal catheter is somewhat high, overlying the lower neck. Nasogastric tube descends to the abdomen. Small amount of left pleural flui d is apparent. Lungs are otherwise hyperinflated. job trainer leads overlie the chest. IMPRESSION: 1. Endotracheal catheter tip remains somewhat high. Please consider advancing the tube. 2. Other findings are stable. POS: [facility]
[2017-10-27] MEDS: Sodium Chloride 0.45% 1,000 ML IV SCH ×2 (11:32→20:08)
[2017-10-27] MEDS ORDERED: Enoxaparin Sodium 40 MG/0.4 ML SYRINGE SC SCH (12:30)
[2017-10-27] MEDS: cloNIDine 0.3mg/24 Hour PATCH TD SCH (12:37)
--- NOTE | 2017-10-27 19:00 | CON ---
DATE OF CONSULTATION: 10/27/2017 HISTORY OF PRESENT ILLNESS: Mr. Cruz is a 77-year-old female. She was admitted with seizure. In talking to her family, she was noted to be sitting in the chair prolonged period of time. Her family thought she was sleeping. It is really unclear from talking to family how long she was sitting in the chair unresponsive. One of her family member said her face was twitching while she was sleeping and they were not sure what t hat meant. She had a recent hospitalization, where a posterior parietal stroke was identified. It was subacute. She was intubated and transferred to the ICU. I was consulted because of presence in the Critical Ca re Unit. PAST MEDICAL HISTORY: 1. Remarkable for chronic kidney disease. 2. Hypertension. 3. Cerebrovascular disease. 4. Dementia. 5. History of a lipid disorder. 6. History of diastolic heart failure. 7. History of cholecystectomy. 8. History of hysterectomy. 9. History of right arm surgery. 10. History of cataract replacement. 11. History of renal stone removal in the past. 12. History of according to family being extremely inactive. MEDICATIONS: Prior to admission, she was on atorvastatin, Catapres, Lasix, metoprolol, amlodipine, R isperdal, and famotidine. ALLERGIES: PENICILLIN. FAMILY HISTORY: Negative for lung disease at an early age. SOCIAL HISTORY: She appears to have supportive family. She is a smoker, not a drinker, not a drug user. REVIEW OF SYSTEMS: From the family is remarkable only for her wanting to sleep all day. She will wa ke up and eat according to family but then she wants to get back in bed and asleep all day. PHYSICAL EXAMINATION: VITAL SIGNS: Blood pressure 176/75, heart rate is 88, respiratory rate 17, oximetry is 99, temperatu re is 99.9. Intake and output is negative 85. HEENT: Pupils react. Sclerae is anicteric. NECK: Supple. LUNGS: Clear. CARDIOVASCULAR: Regular rhythm, no S3. ABDOMEN: Soft. EXTREMITIES: Without asymmetry. She is unresponsive while mechanically ventilated on no sedation. She did receive ketamine paralytic s and Ativan yesterday in the evening. IMPRESSION: Respiratory failure associated with prolonged status epilepticus. I suspect she was sei zing longer than anybody recognize and this is why she is failing to awaken quickly. I have explained to the family she will remain mechanically ventilated until she starts to awaken and follows commands. Critical care time was 30 minutes.
--- NOTE | 2017-10-27 20:34 | PDOC.PN ---
- Subjective Encounter Start Date: 10/27/17 Encounter Start Time: 19:15 Subjective: f/u for acute resp failure and likely prolonged seizure on mech vent. - Objective Resuscitation Status: Resuscitation Status FULL:Full Resuscitation MAR Reviewed: Yes Vital Signs & Weight: Vital Signs (12 hours) Pulse Resp BP 10/27/17 20:08 107 H 183/76 H 10/27/17 18:00 17 10/27/17 16:00 21 H 10/27/17 14:50 107 H 104/68 10/27/17 14:00 15 10/27/17 12:00 15 10/27/17 11:59 81 141/65 H 10/27/17 10:00 17 Weight Admit Weight 96 lb Weight 96 lb 9 oz Most Recent Monitor Data Heart Rate from ECG 92 NIBP 183/76 NIBP BP-Mean 88 Respiration from ECG 18 SpO2 100 I&O: 10/26/17 10/27/17 10/28/17 06:59 06:59 06:59 Intake Total 210 1046 Output Total 295 262 Balance -85 784 Result Diagrams: 10/27/17 07:49 10/27/17 03:33 Additional Labs: Laboratory Tests 06/15/17 10/26/17 10/26/17 08:56 22:51 22:51 Sodium 146 H Potassium 3.4 L Carbon Dioxide 16 L Creatinine 1.94 H Estimated GFR (MDRD) 30 Lactic Acid Alkaline Phosphatase 449 H TSH 3rd Generation 0.1214 L 0.0145 L Prolactin 10/26/17 10/26/17 10/27/17 22:51 22:53 03:33 Sodium Potassium Carbon Dioxide Creatinine Estimated GFR (MDRD) Lactic Acid 7.4 H* 1.4 Alkaline Phosphatase TSH 3rd Generation Prolactin 131.90 H 10/27/17 03:33 Sodium Potassium Carbon Dioxide Creatinine Estimated GFR (MDRD) Lactic Acid Alkaline Phosphatase 472 H TSH 3rd Generation Prolactin Radiology Reviewed by me: Yes (PCXR - lines/tubes in place, mild pulm vasc prominence) EKG Reviewed by me: Yes (Tele - Sinus tach in low 100's) Phys Exam - Physical Examination sedate on mech vent ETT in place HEENT: oral pharynx no lesions Neck: no JVD, supple diminished in bases tachycardic Gastrointestinal: soft, non-tender, no distention, positive bowel sounds Musculoskeletal: no edema, pulses present Skin: normal turgor, cap refill <2 seconds Deviation from normal: Barnett with michelle urine Dx/Plan (1) Acute respiratory failure with hypoxia Code(s): J96.01 - ACUTE RESPIRATORY FAILURE WITH HYPOXIA Status: Acute Comment: Continue SIMV 30% FIO2, wean as clinically tolerated (2) New onset seizure Code(s): R56.9 - UNSPECIFIED CONVULSIONS Status: Acute Comment: Continue Keppra 500mg IV q12h, Neurology consult, Ativan prn (3) Lactic acidosis Code(s): E87.2 - ACIDOSIS Status: Acute Comment: Secondary to seizure disorder, improving (4) Acute worsening of stage 3 chronic kidney disease Code(s): N18.3 - CHRONIC KIDNEY DISEASE, STAGE 3 (MODERATE) Status: Acute Comment: Avoid nephrotoxic meds and contrast media, serial creatinine (5) Dehydration Code(s): E86.0 - DEHYDRATION Status: Acute Comment: Continue IVF's (6) Anemia, normocytic normochromic Code(s): D64.9 - ANEMIA, UNSPECIFIED Status: Chronic Comment: No evidence of active blood loss, serial CBC (7) Acute hypernatremia Code(s): E87.0 - HYPEROSMOLALITY AND HYPERNATREMIA Status: Acute Comment: Suspect due to dehydration, IVF's, serial Na+ - Plan plan discussed w/ family, social director, respiratory therapy, DVT proph w/SCDs Continue supportive mgmt -: Continue Keppra 500mg IV q12h -: Continue ASA 300mg IN daily -: Continue mech ventilation weaning as clinically indicated -: AM lab: CMP, CBC * PCXR in am
--- NOTE | 2017-10-27 21:20 | CON ---
DATE OF CONSULTATION: 10/27/2017 CONSULTING PHYSICIAN: Hospitalist Service. IMPRESSION: 1. Seizures secondary to underlying stroke. 2. Past history of stroke without specific outcomes, unknown. 3. Respiratory failure. PLAN: 1. Continue Keppra. 2. Titrate dose upward if necessary for breakthrough seizures. HISTORY OF PRESENT ILLNESS: Ms. Cruz is a 77-year-old black female with a past history of stroke r elated dementia and hypertension. She apparently had a seizure and was subsequently intubated. She has failed to regain awareness. I was called to give a neurologic opinion. PAST MEDICAL HISTORY: As listed above. ALLERGIES: None reported. SOCIAL HISTORY: Unknown. FAMILY HISTORY: Unknown. REVIEW OF SYSTEMS: Not obtainable. PHYSICAL EXAMINATION: GENERAL: She is a thin elderly female on ventilatory support. VITAL SIGNS: Pulse 90, blood pressure 176/75, and saturations are 100%. NEUROLOGIC: She partially open the right eye, but with difficulty opening the left. I could only ge t her to arouse briefly to stimulation. I could not get her to follow any commands. No abnormal mov ements were seen. Tone appeared symmetric. IMAGING: CT images were reviewed. SUMMARY: This is an elderly lady with vascular dementia and secondary seizures, has been started on Keppra. May take her a while to clear mentally due to her underlying brain disease. We could check an EEG tomorrow if she fails to show improvement to rule out subclinical seizures.
[2017-10-28 05:04] LABS: Band 2 % (5-11); Lymphocytes 7 % (21-51); MDiff Complete? YES; Mean Corpuscular HGB CONC 31.6 g/dL (32.0-36.0); Mean Corpuscular Hemoglobin 29.1 pg (27.0-31.0); Mean Corpuscular Volume 92.1 fl (81.0-99.0); Monocytes 1 % (0-10); Neutrophil 90 % (42-75); PLT Morphology Comment Appears Adequate; Platelet Count 190 thou/uL (130-400); RBC Distribution Width 13.1 % (11.5-14.5); Red Blood Cell (RBC) Count 2.73 mill/uL (4.20-5.40); White Blood Cell (WBC) Count 10.5 thou/uL (4.8-10.8)
[2017-10-28 05:08] LABS: ALT (SGPT) 24 U/L (8-55); AST (SGOT) 29 U/L (5-34); Albumin 2.7 g/dL (3.4-4.8); Alkaline Phosphatase 374 U/L (40-150); Anion Gap 11 mmol/L (10-20); BUN (Urea Nitrogen) 20 mg/dL (9.8-20.1); Bilirubin, Total 0.7 mg/dL (0.2-1.2); Calc. Creatinine Clearance 19 mL/min (70-130); Calcium 8.4 mg/dL (7.8-10.44); Carbon Dioxide 20 mmol/L (23-31); Chloride 116 mmol/L (98-107); Estimated GFR-MDRD 36; Globulin 2.8 g/dL (2.4-3.5); Glucose 97 mg/dL (83-110); Potassium 3.1 mmol/L (3.5-5.1); Protein, Total 5.5 g/dL (6.0-8.3); Sodium 144 mmol/L (136-145)
[2017-10-28] MEDS: hydrALAZINE 20 MG/ML VIAL SLOW IVP PRN ×2 (05:15→23:04)
[2017-10-28 07:36] LABS: pH, Arterial 7.43 (7.35-7.45)
[2017-10-28 07:37] LABS: Actual Bicarbonate (HCO3a) 18.6 mEq/L (22-26); Base Excess (BEa) -5.1 mEq/L (0 (+/-) 2.5); CO2 Tension 28.8 mmHg (35.0-45.0); O2 Tension (PaO2) 108.4 mmHg (80.0-100.0)
[2017-10-28 07:38] LABS: Calcium, Ionized 1.2 mmol/L (1.12-1.30); Puncture Site RBA
[2017-10-28] MEDS: Sodium Chloride 0.45% 1,000 ML IV SCH ×2 (08:53→18:37)
[2017-10-28] MEDS: Enoxaparin Sodium 40 MG/0.4 ML SYRINGE SC SCH (08:54)
[2017-10-28] MEDS: Aspirin 300 MG Suppository PR SCH (08:54)
[2017-10-28] MEDS: Famotidine/PF 20 mg/2ml Vial SLOW IVP SCH (09:00)
--- NOTE | 2017-10-28 09:09 | RAD ---
SINGLE VIEW OF THE CHEST: COMPARISON: 10/27/17. HISTORY: Intubated patient with respiratory failure. FINDINGS: A single view of the chest shows a normal-size cardiomediastinal silhouette. An endotracheal tube is seen with its tip between the clavicles. The NG tube courses off the anterior aspect of the film. Increased interstitial lung markings are present. There is no evidence of consolidation, mass, or pl eural effusion. IMPRESSION: Appropriate position of lines and tubes. POS: [facility]
--- NOTE | 2017-10-28 11:17 | PRG ---
DATE OF SERVICE: 10/28/2017 Emilee rCuz will awaken. She is probably at her baseline neurologically. She sleeps most of the time according to family. She moves her extremities to command. PHYSICAL EXAMINATION: VITAL SIGNS: She is afebrile, heart rate 99, blood pressure 167/70, respiratory rate is 18. LUNGS: Clear. HEART: Regular rhythm. ABDOMEN: Soft. LABORATORY DATA: White count 10.5, hemoglobin 8.0, platelets 190. Sodium 144, potassium 3.1, chloride 116, bicarbonate 20, BUN 20, creatinine 1.67, pH 7.43, CO2 of 28, pO2 108. Chest radiograph reviewed by me shows no alveolar infiltrate suggestive of pneumonia. IMPRESSION: Status post intubation for prolonged episode of status epilepticus. PLAN: Extubation. Code status really should be addressed. She is a very nonfunctional, demented pa tient who lives at home with excellent family support, but complex medical management plus chest comp ressions, CPR, cardioversion or reintubation would in my opinion not increase her length of life. Critical care time was 30 minutes.
--- NOTE | 2017-10-28 17:37 | PDOC.PN ---
- Subjective Encounter Start Date: 10/28/17 Encounter Start Time: 17:20 Subjective: f/u for resp failure on mech vent in context of prolonged seizure. Currenlt -: on Keppra 500mg IV q12h. - Objective Resuscitation Status: Resuscitation Status FULL:Full Resuscitation MAR Reviewed: Yes Vital Signs & Weight: Vital Signs (12 hours) Temp Pulse Resp BP Pulse Ox 10/28/17 16:00 98.0 F 10/28/17 12:00 98.3 F 10/28/17 11:30 106 H 21 H 100 10/28/17 10:00 26 H 10/28/17 08:00 99.0 F 109 H 24 H 100 10/28/17 07:00 105 H 160/61 H 10/28/17 06:00 24 H Weight Admit Weight 96 lb Weight 97 lb 0.054 oz Most Recent Monitor Data Heart Rate from ECG 98 NIBP 164/85 NIBP BP-Mean 143 Respiration from ECG 24 SpO2 100 I&O: 10/27/17 10/28/17 10/29/17 06:59 06:59 06:59 Intake Total 210 2262 Output Total 295 422 390 Balance -85 1840 -390 Result Diagrams: 10/28/17 04:34 10/28/17 04:34 Additional Labs: Laboratory Tests 06/15/17 10/26/17 10/26/17 08:56 22:51 22:51 WBC 11.1 H Hgb 8.9 L Neutrophils % 90.6 H Neutrophils % (Manual) Sodium 146 H Potassium 3.4 L Carbon Dioxide 16 L Creatinine 1.94 H Estimated GFR (MDRD) 30 Lactic Acid Alkaline Phosphatase 449 H TSH 3rd Generation 0.1214 L Prolactin 10/26/17 10/26/17 10/26/17 22:51 22:51 22:53 WBC Hgb Neutrophils % Neutrophils % (Manual) Sodium Potassium Carbon Dioxide Creatinine Estimated GFR (MDRD) Lactic Acid 7.4 H* Alkaline Phosphatase TSH 3rd Generation 0.0145 L Prolactin 131.90 H 10/27/17 10/27/17 10/27/17 03:33 03:33 07:49 WBC 12.0 H Hgb 8.6 L Neutrophils % 88.5 H Neutrophils % (Manual) Sodium 147 H Potassium 3.6 Carbon Dioxide Creatinine 1.70 H Estimated GFR (MDRD) Lactic Acid 1.4 Alkaline Phosphatase 472 H TSH 3rd Generation Prolactin 10/28/17 04:34 WBC Hgb Neutrophils % Neutrophils % (Manual) 90 H Sodium Potassium Carbon Dioxide Creatinine Estimated GFR (MDRD) Lactic Acid Alkaline Phosphatase TSH 3rd Generation Prolactin Radiology Reviewed by me: Yes (PCXR - lines/tubes in place) EKG Reviewed by me: Yes (Tele - SR) Phys Exam - Physical Examination NC in place HEENT: oral pharynx no lesions Neck: no JVD, supple diminished in bases Respiratory: no wheezing Cardiovascular: RRR Gastrointestinal: soft, non-tender, no distention, positive bowel sounds Musculoskeletal: no edema, pulses present Skin: normal turgor, cap refill <2 seconds Dx/Plan (1) Acute respiratory failure with hypoxia Code(s): J96.01 - ACUTE RESPIRATORY FAILURE WITH HYPOXIA Status: Acute Comment: Extubated 10/28/17 on current NC maintaining O2 sats in upper 90% (2) New onset seizure Code(s): R56.9 - UNSPECIFIED CONVULSIONS Status: Acute Comment: Continue Keppra 500mg IV q12h, Neurology consult, Ativan prn, ?EEG (3) Lactic acidosis Code(s): E87.2 - ACIDOSIS Status: Acute Comment: Secondary to seizure disorder, resolved (4) Acute worsening of stage 3 chronic kidney disease Code(s): N18.3 - CHRONIC KIDNEY DISEASE, STAGE 3 (MODERATE) Status: Acute Comment: Avoid nephrotoxic meds and contrast media, serial creatinine (5) Dehydration Code(s): E86.0 - DEHYDRATION Status: Acute Comment: Continue NS IVF's @ 100ml/h (6) Anemia, normocytic normochromic Code(s): D64.9 - ANEMIA, UNSPECIFIED Status: Chronic Comment: No evidence of active blood loss, serial CBC (7) Acute hypernatremia Code(s): E87.0 - HYPEROSMOLALITY AND HYPERNATREMIA Status: Acute Comment: Suspect due to dehydration, IVF's, serial Na+, resolved - Plan respiratory therapy, DVT proph w/SCDs Continue critical support -: s/p extubation 10/28/17 -: Continue Keppra 500mg IV q12h -: PCXR in am -: AM lab: CMP, CBC * Palliative care following for goals of care
--- NOTE | 2017-10-29 00:06 | PRG ---
DATE OF VISIT: 10/28/2017 Ms. Cruz remains fairly lethargic. She will open her eyes to light stimulation. I could not get h er to follow any commands. Her vital signs have been stable. She is now extubated. No seizure acti vity has been witnessed. Given her history of dementia and a new onset of treatment with anticonvulsants, suspect it will take her time to come back to a normal level of alertness. She seems to be stable and I would continue t he current management.
[2017-10-29 04:19] LABS: AST (SGOT) 20 U/L (5-34); Albumin 2.6 g/dL (3.4-4.8); Anion Gap 14 mmol/L (10-20); BUN (Urea Nitrogen) 21 mg/dL (9.8-20.1); Bilirubin, Total 0.6 mg/dL (0.2-1.2); Calc. Creatinine Clearance 20 mL/min (70-130); Calcium 8.2 mg/dL (7.8-10.44); Carbon Dioxide 16 mmol/L (23-31); Chloride 114 mmol/L (98-107); Estimated GFR-MDRD 38; Globulin 2.9 g/dL (2.4-3.5); Glucose 75 mg/dL (83-110); Potassium 3.7 mmol/L (3.5-5.1); Protein, Total 5.5 g/dL (6.0-8.3); Sodium 140 mmol/L (136-145)
[2017-10-29 04:21] LABS: Alkaline Phosphatase 361 U/L (40-150)
[2017-10-29 04:24] LABS: ALT (SGPT) 21 U/L (8-55)
[2017-10-29 05:25] LABS: Band 5 % (5-11); Hemoglobin 8.1 g/dL (12.0-16.0); Hypochromia SLIGHT = 6-15 cells (100X) (0-5/hpf); Lymphocytes 1 % (21-51); MDiff Complete? YES; Mean Corpuscular HGB CONC 30.4 g/dL (32.0-36.0); Mean Corpuscular Hemoglobin 28.2 pg (27.0-31.0); Mean Platelet Volume 9.5 fL (7.4-10.4); Monocytes 3 % (0-10); Neutrophil 91 % (42-75); PLT Morphology Comment Appears Adequate; Platelet Count 171 thou/uL (130-400); RBC Distribution Width 13.1 % (11.5-14.5); Red Blood Cell (RBC) Count 2.86 mill/uL (4.20-5.40); White Blood Cell (WBC) Count 9.7 thou/uL (4.8-10.8)
[2017-10-29] MEDS: Sodium Chloride 0.45% 1,000 ML IV SCH (05:54)
[2017-10-29] MEDS ORDERED: Sodium Chloride 0.45% 1,000 ML IV SCH (07:57)
--- NOTE | 2017-10-29 08:22 | RAD ---
CHEST 1 VIEW: Date: 10/29/17 HISTORY: Respiratory failure, volume overload. COMPARISON: Chest 1 view from prior day. FINDINGS: Heart size is similar. There is prominence of the pulmonary trunk. Layering left effusion. No pneumot horax. Mild pulmonary venous congestion. IMPRESSION: 1. Small left effusion and pulmonary venous congestion. 2. Enlargement of the pulmonary arteries suggest pulmonary arterial hypertension. 3. Interval extubation and removal of the enteric tube. POS: SHAY
--- NOTE | 2017-10-29 08:56 | PRG ---
DATE OF SERVICE: 10/29/2017 The patient was extubated yesterday. She will awaken, but will not answer questions or follow comman ds for me. PHYSICAL EXAMINATION: VITAL SIGNS: Temperature 98.4, pulse 95, blood pressure 169/69, 24 hour intake 2302, output 735. HEENT: She has bitemporal wasting. Oropharynx is clear. NECK: No JVD. LUNGS: Coarse breath sounds. CARDIAC: S1 and S2 regular. ABDOMEN: Soft, nontender. EXTREMITIES: Severe muscle wasting. SKIN: No obvious lesions. LABORATORY DATA: White blood cell count 9.7, hemoglobin 8.1, hematocrit 26.6, platelet count 171. S odium 140, potassium 3.7, chloride 114, CO2 16, BUN 21, creatinine 1.5, glucose 75, alkaline phosphat ase 361. Chest x-ray shows cardiomegaly, small left pleural effusion. ASSESSMENT: 1. Status post intubation for prolonged episode of status epilepticus. 2. Advanced age. 3. Alzheimer's type dementia. 4. Chronic kidney disease. 5. Diastolic cardiac dysfunction. 6. History of multiple other medical problems. PLAN: She can be transferred to telemetry unit if she can obtain a sitter. I will go ahead and decr ease her IV fluids. Code status needs to be discussed with the family.
[2017-10-29] MEDS: Famotidine/PF 20 mg/2ml Vial SLOW IVP SCH (09:16)
[2017-10-29] MEDS: Enoxaparin Sodium 40 MG/0.4 ML SYRINGE SC SCH (09:17)
[2017-10-29] MEDS: Aspirin 300 MG Suppository PR SCH (09:18)
[2017-10-29] MEDS: Dextrose 5 %-0.45 % NaCl 1,000 ML IV SCH (09:22)
[2017-10-29] MEDS: hydrALAZINE 20 MG/ML VIAL SLOW IVP PRN (11:14)
--- NOTE | 2017-10-29 18:40 | PDOC.PN ---
- Subjective Encounter Start Date: 10/29/17 Encounter Start Time: 18:35 Subjective: f/u for acute hypoxic resp failure after prolonged seizure. Extubated -: 10/28/17 but remains lethargic and not following commands. Sleeping -: most of the day and not interacting. - Objective Resuscitation Status: Resuscitation Status FULL:Full Resuscitation MAR Reviewed: Yes Vital Signs & Weight: Vital Signs (12 hours) Temp Pulse Resp BP Pulse Ox 10/29/17 17:57 98.4 F 94 20 164/65 H 100 10/29/17 15:42 98 F 10/29/17 11:37 98.2 F 10/29/17 11:14 86 10/29/17 07:52 98.4 F 86 17 10/29/17 07:16 100 10/29/17 07:00 98.4 F Weight Admit Weight 96 lb Weight 97 lb 0.054 oz Most Recent Monitor Data Heart Rate from ECG 82 NIBP 152/63 NIBP BP-Mean 77 Respiration from ECG 17 SpO2 100 I&O: 10/28/17 10/29/17 10/30/17 06:59 06:59 06:59 Intake Total 2262 2302 783 Output Total 422 735 470 Balance 1840 1567 313 Result Diagrams: 10/29/17 03:34 10/29/17 03:34 Additional Labs: Laboratory Tests 06/15/17 10/26/17 10/26/17 08:56 22:51 22:51 WBC 11.1 H Hgb 8.9 L Hct Neutrophils % 90.6 H Neutrophils % (Manual) Sodium 146 H Potassium 3.4 L Carbon Dioxide 16 L Creatinine 1.94 H Estimated GFR (MDRD) 30 Lactic Acid Alkaline Phosphatase 449 H TSH 3rd Generation 0.1214 L Prolactin 10/26/17 10/26/17 10/26/17 22:51 22:51 22:53 WBC Hgb Hct Neutrophils % Neutrophils % (Manual) Sodium Potassium Carbon Dioxide Creatinine Estimated GFR (MDRD) Lactic Acid 7.4 H* Alkaline Phosphatase TSH 3rd Generation 0.0145 L Prolactin 131.90 H 10/27/17 10/27/17 10/27/17 03:33 03:33 07:49 WBC 12.0 H Hgb 8.6 L Hct Neutrophils % 88.5 H Neutrophils % (Manual) Sodium 147 H Potassium 3.6 Carbon Dioxide Creatinine 1.70 H Estimated GFR (MDRD) Lactic Acid 1.4 Alkaline Phosphatase 472 H TSH 3rd Generation Prolactin 10/28/17 10/28/17 10/29/17 04:34 04:34 03:34 WBC Hgb 8.0 L Hct 25.2 L Neutrophils % Neutrophils % (Manual) 90 H 91 H Sodium Potassium 3.1 L Carbon Dioxide Creatinine 1.67 H Estimated GFR (MDRD) Lactic Acid Alkaline Phosphatase TSH 3rd Generation Prolactin Radiology Reviewed by me: Yes (PCXR - small L effusion, pulm vasc prominence) EKG Reviewed by me: Yes (Tele - SR in 80's) Phys Exam - Physical Examination lethargic, opens eyes briefly, not following commands HEENT: oral pharynx no lesions Neck: no JVD, supple diminished in bases Cardiovascular: RRR Gastrointestinal: soft, non-tender, no distention, positive bowel sounds generalized atrophy Musculoskeletal: no edema, pulses present Skin: normal turgor, cap refill <2 seconds Dx/Plan (1) Acute respiratory failure with hypoxia Code(s): J96.01 - ACUTE RESPIRATORY FAILURE WITH HYPOXIA Status: Acute Comment: Extubated 10/28/17 on current NC maintaining O2 sats in upper 90% (2) New onset seizure Code(s): R56.9 - UNSPECIFIED CONVULSIONS Status: Acute Comment: Continue Keppra 500mg IV q12h, Neurology consult, Ativan prn, ?EEG (3) Lactic acidosis Code(s): E87.2 - ACIDOSIS Status: Acute Comment: Secondary to seizure disorder, resolved (4) Acute worsening of stage 3 chronic kidney disease Code(s): N18.3 - CHRONIC KIDNEY DISEASE, STAGE 3 (MODERATE) Status: Acute Comment: Avoid nephrotoxic meds and contrast media, serial creatinine (5) Dehydration Code(s): E86.0 - DEHYDRATION Status: Acute Comment: Continue IVF's (6) Anemia, normocytic normochromic Code(s): D64.9 - ANEMIA, UNSPECIFIED Status: Chronic Comment: No evidence of active blood loss, serial CBC (7) Acute hypernatremia Code(s): E87.0 - HYPEROSMOLALITY AND HYPERNATREMIA Status: Acute Comment: Suspect due to dehydration, IVF's, serial Na+, resolved - Plan plan discussed w/ family, PT/OT, social security assessor, speech therapy, respiratory therapy, DVT proph w/SCDs Continue supportive measures -: CM for SNF/NH options -: Continue Keppra 500mg IV q12h -: Likely transition to telemetry -: Poor prognosis * .
[2017-10-30] MEDS: Dextrose 5 %-0.45 % NaCl 1,000 ML IV SCH ×2 (05:24→23:47)
--- NOTE | 2017-10-30 09:27 | PRG ---
DATE OF SERVICE: 10/30/2017 SUBJECTIVE: The patient is doing reasonably well, is still confused. PHYSICAL EXAMINATION: VITAL SIGNS: Temperature 97.5, pulse 87, respirations 19, O2 sat 100% on 2 liters, blood pressure 16 6/70. HEENT: Unremarkable. NECK: No JVD. CHEST: Clear without wheezing. CARDIAC: S1 and S2 regular. ABDOMEN: Soft. EXTREMITIES: No edema. ASSESSMENT: 1. Status post intubation for prolonged episode of status epilepticus. 2. Advanced age. 3. Alzheimer's type dementia. 4. Chronic kidney disease. 5. Diastolic cardiac dysfunction. PLAN: The patient is cleared to transfer to the medical floor at any time from my standpoint, there are no active respiratory issues at this time.
[2017-10-30] MEDS: Famotidine/PF 20 mg/2ml Vial SLOW IVP SCH (13:09)
[2017-10-30] MEDS: Enoxaparin Sodium 40 MG/0.4 ML SYRINGE SC SCH (13:11)
[2017-10-30] MEDS: Aspirin 300 MG Suppository PR SCH (14:15)
--- NOTE | 2017-10-30 16:48 | PDOC.PN ---
- Subjective Encounter Start Date: 10/30/17 Encounter Start Time: 16:40 Subjective: f/u for acute hypoxic failure after prolonged seizure now extubated. Remain -: unresponsive and minimal interaction other than opening eyes occasionally. - Objective Resuscitation Status: Resuscitation Status FULL:Full Resuscitation MAR Reviewed: Yes Vital Signs & Weight: Vital Signs (12 hours) Temp Pulse Resp BP Pulse Ox 10/30/17 13:07 65 18 132/51 L 97 10/30/17 08:00 97.5 F L 77 19 10/30/17 07:36 97.5 F L 77 19 166/70 H 100 10/30/17 06:00 76 19 168/69 H 100 Weight Admit Weight 96 lb Weight 99 lb 6.4 oz Most Recent Monitor Data Heart Rate from ECG 82 NIBP 152/63 NIBP BP-Mean 77 Respiration from ECG 17 SpO2 100 I&O: 10/29/17 10/30/17 10/31/17 06:59 06:59 06:59 Intake Total 2302 1462 Output Total 735 790 Balance 1567 672 Result Diagrams: 10/29/17 03:34 10/29/17 03:34 EKG Reviewed by me: Yes (Tele - SR) Phys Exam - Physical Examination sedate, does not follow commands HEENT: oral pharynx no lesions Neck: no JVD, supple Respiratory: no wheezing, clear to auscultation bilateral Cardiovascular: RRR Gastrointestinal: soft, non-tender, no distention, positive bowel sounds Musculoskeletal: no edema, pulses present sedate, no interaction, does not follow commands, spont resp Skin: normal turgor, cap refill <2 seconds Dx/Plan (1) Acute respiratory failure with hypoxia Code(s): J96.01 - ACUTE RESPIRATORY FAILURE WITH HYPOXIA Status: Acute Comment: Extubated 10/28/17 on current NC maintaining O2 sats in upper 90% (2) New onset seizure Code(s): R56.9 - UNSPECIFIED CONVULSIONS Status: Acute Comment: Continue Keppra 500mg IV q12h, Neurology consult, Ativan prn, ?EEG (3) Lactic acidosis Code(s): E87.2 - ACIDOSIS Status: Acute Comment: Secondary to seizure disorder, resolved (4) Acute worsening of stage 3 chronic kidney disease Code(s): N18.3 - CHRONIC KIDNEY DISEASE, STAGE 3 (MODERATE) Status: Acute Comment: Avoid nephrotoxic meds and contrast media, serial creatinine (5) Dehydration Code(s): E86.0 - DEHYDRATION Status: Acute Comment: Continue IVF's (6) Anemia, normocytic normochromic Code(s): D64.9 - ANEMIA, UNSPECIFIED Status: Chronic Comment: No evidence of active blood loss, serial CBC (7) Acute hypernatremia Code(s): E87.0 - HYPEROSMOLALITY AND HYPERNATREMIA Status: Acute Comment: Suspect due to dehydration, IVF's, serial Na+, resolved - Plan social work associate, DVT proph w/SCDs Continue supportive measures -: Palliative care consult -: Continue Keppra 500mg IV q12h -: Continue ASA daily -: Transfer to medical floor * AM lab: BMP, CBC
[2017-10-31] MEDS: hydrALAZINE 20 MG/ML VIAL SLOW IVP PRN (05:15)
[2017-10-31 06:00] LABS: Anion Gap 9 mmol/L (10-20); BUN (Urea Nitrogen) 16 mg/dL (9.8-20.1); Calc. Creatinine Clearance 23 mL/min (70-130); Calcium 8.2 mg/dL (7.8-10.44); Carbon Dioxide 21 mmol/L (23-31); Chloride 118 mmol/L (98-107); Estimated GFR-MDRD 44; Glucose 114 mg/dL (83-110); Potassium 3.5 mmol/L (3.5-5.1); Sodium 144 mmol/L (136-145)
[2017-10-31 07:34] LABS: Hemoglobin 8.1 g/dL (12.0-16.0); Mean Corpuscular HGB CONC 31.1 g/dL (32.0-36.0); Mean Corpuscular Hemoglobin 29.1 pg (27.0-31.0); Mean Corpuscular Volume 93.5 fl (81.0-99.0); Mean Platelet Volume 8.9 fL (7.4-10.4); Platelet Count 156 thou/uL (130-400); RBC Distribution Width 12.8 % (11.5-14.5); White Blood Cell (WBC) Count 3.9 thou/uL (4.8-10.8)
[2017-10-31 07:49] LABS: Eosinophils 2 % (0-10); Lymphocytes 24 % (21-51); MDiff Complete? YES; Monocytes 2 % (0-10); Neutrophil 72 % (42-75); RBC Morphology Normal
[2017-10-31] MEDS: Famotidine/PF 20 mg/2ml Vial SLOW IVP SCH (08:35)
[2017-10-31] MEDS: Aspirin 300 MG Suppository PR SCH (08:35)
[2017-10-31] MEDS: Enoxaparin Sodium 40 MG/0.4 ML SYRINGE SC SCH (08:35)
[2017-10-31 08:39] VITALS: BMI 18.1
--- NOTE | 2017-10-31 21:55 | PDOC.PN ---
- Subjective Encounter Start Date: 10/31/17 Encounter Start Time: 19:00 Subjective: f/u s/p acute resp failure after prolonged seizure now on O2 NC. -: Keppra 500mg IV q12h and pt minimally interactive or awake. - Objective Resuscitation Status: Resuscitation Status FULL:Full Resuscitation MAR Reviewed: Yes Vital Signs & Weight: Vital Signs (12 hours) Temp Pulse Resp BP Pulse Ox 10/31/17 20:00 98.9 F 74 18 148/69 H 100 10/31/17 15:20 98.9 F 84 16 128/64 97 10/31/17 11:38 98 F 83 18 127/67 97 Weight Admit Weight 96 lb Weight 99 lb 6.4 oz Most Recent Monitor Data Heart Rate from ECG 82 NIBP 152/63 NIBP BP-Mean 77 Respiration from ECG 17 SpO2 100 I&O: 10/30/17 10/31/17 11/01/17 06:59 06:59 06:59 Intake Total 1462 1270 Output Total 790 550 210 Balance 672 -550 1060 Result Diagrams: 10/31/17 05:23 10/31/17 05:23 Additional Labs: Laboratory Tests 06/15/17 10/26/17 10/26/17 08:56 22:51 22:51 WBC 11.1 H Hgb 8.9 L Hct Neutrophils % 90.6 H Neutrophils % (Manual) Sodium 146 H Potassium 3.4 L Carbon Dioxide 16 L Creatinine 1.94 H Estimated GFR (MDRD) 30 Lactic Acid Alkaline Phosphatase 449 H TSH 3rd Generation 0.1214 L Prolactin 10/26/17 10/26/17 10/26/17 22:51 22:51 22:53 WBC Hgb Hct Neutrophils % Neutrophils % (Manual) Sodium Potassium Carbon Dioxide Creatinine Estimated GFR (MDRD) Lactic Acid 7.4 H* Alkaline Phosphatase TSH 3rd Generation 0.0145 L Prolactin 131.90 H 10/27/17 10/27/17 10/27/17 03:33 03:33 07:49 WBC 12.0 H Hgb 8.6 L Hct Neutrophils % 88.5 H Neutrophils % (Manual) Sodium 147 H Potassium 3.6 Carbon Dioxide Creatinine 1.70 H Estimated GFR (MDRD) Lactic Acid 1.4 Alkaline Phosphatase 472 H TSH 3rd Generation Prolactin 01/26/18 01/26/18 01/27/18 04:34 04:34 03:34 WBC Hgb 8.0 L Hct 25.2 L Neutrophils % Neutrophils % (Manual) 90 H 91 H Sodium Potassium 3.1 L Carbon Dioxide Creatinine 1.67 H Estimated GFR (MDRD) Lactic Acid Alkaline Phosphatase TSH 3rd Generation Prolactin Phys Exam - Physical Examination lethargic, mumbles occasionally HEENT: oral pharynx no lesions Neck: no JVD, supple Respiratory: no wheezing, clear to auscultation bilateral Cardiovascular: RRR Gastrointestinal: soft, non-tender, no distention, positive bowel sounds Musculoskeletal: no edema, pulses present A x O x O Skin: normal turgor, cap refill <2 seconds Dx/Plan (1) Acute respiratory failure with hypoxia Code(s): J96.01 - ACUTE RESPIRATORY FAILURE WITH HYPOXIA Status: Acute Comment: Extubated 10/28/17 on current 2L NC maintaining O2 sats in upper 90% (2) New onset seizure Code(s): R56.9 - UNSPECIFIED CONVULSIONS Status: Acute Comment: Continue Keppra 500mg IV q12h, Neurology consult, Ativan prn, ?EEG (3) Lactic acidosis Code(s): E87.2 - ACIDOSIS Status: Acute Comment: Secondary to seizure disorder, resolved (4) Acute worsening of stage 3 chronic kidney disease Code(s): N18.3 - CHRONIC KIDNEY DISEASE, STAGE 3 (MODERATE) Status: Acute Comment: Avoid nephrotoxic meds and contrast media, serial creatinine, improving (5) Dehydration Code(s): E86.0 - DEHYDRATION Status: Acute Comment: Continue IVF's (6) Anemia, normocytic normochromic Code(s): D64.9 - ANEMIA, UNSPECIFIED Status: Chronic Comment: No evidence of active blood loss, serial CBC (7) Acute hypernatremia Code(s): E87.0 - HYPEROSMOLALITY AND HYPERNATREMIA Status: Acute Comment: Suspect due to dehydration, IVF's, serial Na+, resolved - Plan hospice social worker, speech therapy, respiratory therapy, DVT proph w/SCDs Continue supportive measures -: Keppra 500mg IV q12h, transition to po in 24h -: CM for SNF options -: Continue D5 1/2 NS at 50ml/h -: Palliative care for goals of care * .
[2017-10-31] MEDS: Dextrose 5 %-0.45 % NaCl 1,000 ML IV SCH (23:05)
[2017-11-01] MEDS ORDERED: Diabetic Tussin 200 MG/10 ML UDCUP PO PRN (04:28)
[2017-11-01] MEDS: Aspirin 300 MG Suppository PR SCH (09:31)
[2017-11-01] MEDS: Enoxaparin Sodium 40 MG/0.4 ML SYRINGE SC SCH (09:32)
[2017-11-01] MEDS: Famotidine/PF 20 mg/2ml Vial SLOW IVP SCH (09:32)
[2017-11-01] MEDS: Dextrose 5 %-0.45 % NaCl 1,000 ML IV SCH ×2 (14:41→16:32)
[2017-11-01] MEDS ORDERED: levETIRAcetam In NaCl (Iso-Os) 250 MG in Premix Bag 1 BAG IVPB SCH ×4 (17:00→23:59)
--- NOTE | 2017-11-01 17:26 | PDOC.PN ---
- Subjective Encounter Start Date: 11/01/17 Encounter Start Time: 17:24 Subjective: pt not letting staff move her .daughter ta bedside -: reports that her mom is sleepy - Objective Resuscitation Status: Resuscitation Status FULL:Full Resuscitation MAR Reviewed: Yes Vital Signs & Weight: Vital Signs (12 hours) Temp Pulse Resp BP Pulse Ox 11/01/17 12:34 98.1 F 74 20 172/74 H 100 11/01/17 08:00 98.2 F 72 20 125/60 100 11/01/17 06:49 98.0 F 67 20 169/81 H 96 Weight Admit Weight 96 lb Weight 99 lb 6.4 oz Most Recent Monitor Data Heart Rate from ECG 82 NIBP 152/63 NIBP BP-Mean 77 Respiration from ECG 17 SpO2 100 I&O: 10/31/17 11/01/17 11/02/17 06:59 06:59 06:59 Intake Total 1270 Output Total 550 210 150 Balance -550 1060 -150 Result Diagrams: 10/31/17 05:23 10/31/17 05:23 Additional Labs: Laboratory Tests 06/05/17 06/05/17 06/05/17 17:25 17:25 22:03 Creatinine 1.86 H Lactic Acid Alkaline Phosphatase Troponin I 0.047 H 0.061 H Triglycerides Cholesterol LDL Cholesterol, Calc HDL Cholesterol 06/05/17 06/06/17 06/07/17 23:49 07:07 09:38 Creatinine 1.60 H 1.68 H Lactic Acid Alkaline Phosphatase Troponin I 0.059 H Triglycerides Cholesterol LDL Cholesterol, Calc HDL Cholesterol 06/08/17 10/26/17 10/26/17 04:50 22:51 22:53 Creatinine 1.71 H 1.94 H Lactic Acid 7.4 H* Alkaline Phosphatase 449 H Troponin I Triglycerides 101 Cholesterol 226 H LDL Cholesterol, Calc 144 HDL Cholesterol 62 10/27/17 10/27/17 10/28/17 03:33 03:33 04:34 Creatinine 1.70 H 1.67 H Lactic Acid 1.4 Alkaline Phosphatase 472 H 374 H Troponin I Triglycerides Cholesterol LDL Cholesterol, Calc HDL Cholesterol 10/29/17 10/31/17 03:34 05:23 Creatinine 1.57 H 1.39 H Lactic Acid Alkaline Phosphatase 361 H Troponin I Triglycerides Cholesterol LDL Cholesterol, Calc HDL Cholesterol Phys Exam - Physical Examination Constitutional: NAD sleepy ,coughing up phlegmn HEENT: moist MMs Neck: no JVD Respiratory: no wheezing, clear to auscultation bilateral Cardiovascular: RRR, no significant murmur Gastrointestinal: soft, non-tender, no distention, positive bowel sounds Musculoskeletal: no edema, pulses present Neurological: moves all 4 limbs Skin: no rash Dx/Plan (1) Acute hypernatremia Code(s): E87.0 - HYPEROSMOLALITY AND HYPERNATREMIA Status: Acute Comment: Suspect due to dehydration, IVF's, serial Na+, resolved (2) Acute respiratory failure with hypoxia Code(s): J96.01 - ACUTE RESPIRATORY FAILURE WITH HYPOXIA Status: Acute Comment: Extubated 10/28/17 on current 2L NC maintaining O2 sats in upper 90% (3) Lactic acidosis Code(s): E87.2 - ACIDOSIS Status: Acute Comment: Secondary to seizure disorder, resolved (4) New onset seizure Code(s): R56.9 - UNSPECIFIED CONVULSIONS Status: Acute Comment: Keppra 500mg IV q12h, Neurology consult, Ativan prn, ?EEG (5) Acute worsening of stage 3 chronic kidney disease Code(s): N18.3 - CHRONIC KIDNEY DISEASE, STAGE 3 (MODERATE) Status: Acute Comment: Avoid nephrotoxic meds and contrast media, serial creatinine, improving (6) Dehydration Code(s): E86.0 - DEHYDRATION Status: Acute Comment: Continue IVF's (7) Anemia, normocytic normochromic Code(s): D64.9 - ANEMIA, UNSPECIFIED Status: Chronic Comment: No evidence of active blood loss, serial CBC (8) COPD (chronic obstructive pulmonary disease) Status: Chronic Qualifiers: (9) Dyslipidemia Code(s): E78.5 - HYPERLIPIDEMIA, UNSPECIFIED Status: Chronic (10) H/O: CVA (cerebrovascular accident) Code(s): Z86.73 - PRSNL HX OF TIA (TIA), AND CEREB INFRC W/O RESID DEFICITS Status: Chronic (11) Protein-calorie malnutrition, moderate Code(s): E44.0 - MODERATE PROTEIN-CALORIE MALNUTRITION Status: Chronic - Plan plan discussed w/ family, PT/OT, child protective services social worker, respiratory therapy, incentive spirometry, out of bed/ambulate, DVT proph w/SCDs Reduce dose of keppra as family thinks that is making pt sleepy -: Family undecided about DC dispo.SNu oererd placed.will follow -: Lytes better.cont gentle IVF. -: am labs * . Review of Systems - Review of Systems Other: can not be obtained as Pt agitated and would only yell - Medications/Allergies Allergies/Adverse Reactions: Allergies Allergy/AdvReac Type Severity Reaction Status Date / Time Penicillins Allergy Verified 10/27/17 03:21 Medications: Current Medications Acetaminophen (Tylenol) 650 mg UT Q4H PRN PRN Reason: Headache/Fever or Pain Amlodipine Besylate (Norvasc) 5 mg PO BID [facility] Aspirin (Aspirin) 300 mg UT DAILY [facility] Last Admin: 11/01/17 09:31 Dose: 300 mg Aspirin (Ecotrin) 81 mg PO DAILY [facility] Atorvastatin Calcium (Lipitor) 20 mg PO HS [facility] Clonidine (Yvnzhvlg-Xbh-0) 0.3 mg TD Q7DAYS [facility] Last Admin: 10/27/17 12:37 Dose: 0.3 mg Enoxaparin Sodium (Lovenox) 40 mg SC 0900 [facility] Last Admin: 11/01/17 09:32 Dose: 40 mg Famotidine (Pepcid) 20 mg PO DAILY [facility] Guaifenesin (Robitussin Sf) 200 mg PO Q4H PRN PRN Reason: Cough Last Admin: 11/01/17 09:31 Dose: 200 mg Hydralazine HCl (Apresoline) 10 mg SLOW IVP Q3H PRN PRN Reason: SBP > 180 Last Admin: 10/31/17 05:15 Dose: 10 mg Dextrose/Sodium Chloride (D5 1/2 Ns) 1,000 mls @ 50 mls/hr IV .Q20H [facility] Last Admin: 11/01/17 16:32 Dose: 1,000 mls Levetiracetam 250 mg/ Device 50 mls @ 200 mls/hr IVPB 1200,2359 [facility] Lorazepam (Ativan) 1 mg SLOW IVP Q4H PRN PRN Reason: Anxiety/Agitation Metoprolol Tartrate (Lopressor) 25 mg PO BID [facility] Ondansetron HCl (Zofran) 4 mg IVP Q6H PRN PRN Reason: Nausea/Vomiting Sodium Chloride (Flush - Normal Saline) 10 ml IVF Q12HR [facility] Last Admin: 11/01/17 09:33 Dose: Not Given Sodium Chloride (Flush - Normal Saline) 10 ml IVF PRN PRN PRN Reason: Saline Flush
[2017-11-01] MEDS: Amlodipine 5 MG TAB PO SCH (21:47)
[2017-11-01] MEDS: Atorvastatin Calcium 20 MG TAB PO SCH (21:47)
[2017-11-01] MEDS: guaiFENesin ER 600 MG TAB PO SCH (21:47)
[2017-11-01] MEDS: Metoprolol Tartrate 25 MG TAB PO SCH (21:48)
[2017-11-02 05:20] LABS: Anion Gap 9 mmol/L (10-20); BUN (Urea Nitrogen) 14 mg/dL (9.8-20.1); Calc. Creatinine Clearance 22 mL/min (70-130); Calcium 8.1 mg/dL (7.8-10.44); Carbon Dioxide 22 mmol/L (23-31); Chloride 118 mmol/L (98-107); Estimated GFR-MDRD 40; Glucose 114 mg/dL (83-110); Potassium 3.5 mmol/L (3.5-5.1); Sodium 145 mmol/L (136-145)
[2017-11-02] MEDS: Enoxaparin Sodium 40 MG/0.4 ML SYRINGE SC SCH (09:27)
[2017-11-02] MEDS: Aspirin 300 MG Suppository PR SCH (11:06)
[2017-11-02] MEDS: Aspirin 81 mg Enteric Coated Tablet PO SCH (11:08)
[2017-11-02] MEDS: Famotidine 20 MG TAB PO SCH (11:08)
[2017-11-02] MEDS: Amlodipine 5 MG TAB PO SCH ×2 (11:08→19:40)
[2017-11-02] MEDS: guaiFENesin ER 600 MG TAB PO SCH ×2 (11:08→19:39)
[2017-11-02] MEDS: Metoprolol Tartrate 25 MG TAB PO SCH ×2 (11:08→19:39)
--- NOTE | 2017-11-02 11:29 | PDOC.PN ---
- Subjective Encounter Start Date: 11/02/17 Encounter Start Time: 08:30 Subjective: awakens to touch, not oriented -: sister at bedside - Objective Resuscitation Status: Resuscitation Status FULL:Full Resuscitation MAR Reviewed: Yes Vital Signs & Weight: Vital Signs (12 hours) Temp Pulse Resp BP Pulse Ox 11/02/17 09:36 64 159/72 H 11/02/17 08:00 98.4 F 64 16 11/02/17 07:45 98.4 F 78 16 197/77 H 95 Weight Admit Weight 96 lb Weight 99 lb 6.4 oz Most Recent Monitor Data Heart Rate from ECG 82 NIBP 152/63 NIBP BP-Mean 77 Respiration from ECG 17 SpO2 100 I&O: 11/01/17 11/02/17 11/03/17 06:59 06:59 06:59 Intake Total 1270 1370 Output Total 210 600 Balance 1060 770 Result Diagrams: 10/31/17 05:23 11/02/17 04:10 Phys Exam - Physical Examination HEENT: PERRLA, moist MMs Neck: no JVD, supple Respiratory: no wheezing, no rales Cardiovascular: RRR, no significant murmur Gastrointestinal: soft, non-tender, positive bowel sounds Musculoskeletal: pulses present, edema present Neurological: non-focal, moves all 4 limbs Dx/Plan (1) Acute respiratory failure with hypoxia Code(s): J96.01 - ACUTE RESPIRATORY FAILURE WITH HYPOXIA Status: Acute Comment: Extubated 10/28/17 on current 2L NC maintaining O2 sats in upper 90% (2) New onset seizure Code(s): R56.9 - UNSPECIFIED CONVULSIONS Status: Acute Comment: Keppra 250mg IV q12h, Neurology consult, Ativan prn (3) Acute worsening of stage 3 chronic kidney disease Code(s): N18.3 - CHRONIC KIDNEY DISEASE, STAGE 3 (MODERATE) Status: Acute Comment: Avoid nephrotoxic meds and contrast media, serial creatinine, improving (4) Dehydration Code(s): E86.0 - DEHYDRATION Status: Acute Comment: Continue IVF's (5) Anemia, normocytic normochromic Code(s): D64.9 - ANEMIA, UNSPECIFIED Status: Chronic Comment: No evidence of active blood loss, serial CBC (6) COPD (chronic obstructive pulmonary disease) Status: Chronic Qualifiers: COPD type: unspecified COPD Qualified Code(s): J44.9 - Chronic obstructive pulmonary disease, unspecified (7) Dyslipidemia Code(s): E78.5 - HYPERLIPIDEMIA, UNSPECIFIED Status: Chronic (8) FTT (failure to thrive) in adult Status: Chronic (9) H/O: CVA (cerebrovascular accident) Code(s): Z86.73 - PRSNL HX OF TIA (TIA), AND CEREB INFRC W/O RESID DEFICITS Status: Chronic (10) Hypertension Code(s): I10 - ESSENTIAL (PRIMARY) HYPERTENSION Status: Chronic Qualifiers: Hypertension type: essential hypertension Qualified Code(s): I10 - Essential (primary) hypertension (11) Protein-calorie malnutrition, moderate Code(s): E44.0 - MODERATE PROTEIN-CALORIE MALNUTRITION Status: Chronic - Plan likely has dementia ?vascular -: no further seizure, poor oral intake -: is on d51/2ns, asp, lipitor -: on clonidine patch, oral lopressor -: will need dementia unit, PT eval, oob to chair as tolerated * . Review of Systems - Medications/Allergies Allergies/Adverse Reactions: Allergies Allergy/AdvReac Type Severity Reaction Status Date / Time Penicillins Allergy Verified 10/27/17 03:21 Medications: Current Medications Acetaminophen (Tylenol) 650 mg AR Q4H PRN PRN Reason: Headache/Fever or Pain Amlodipine Besylate (Norvasc) 5 mg PO BID [facility] Last Admin: 11/02/17 11:08 Dose: Not Given Aspirin (Ecotrin) 81 mg PO DAILY [facility] Last Admin: 11/02/17 11:08 Dose: Not Given Atorvastatin Calcium (Lipitor) 20 mg PO HS [facility] Last Admin: 11/01/17 21:47 Dose: Not Given Clonidine (Egeisamu-Rww-1) 0.3 mg TD Q7DAYS [facility] Last Admin: 10/27/17 12:37 Dose: 0.3 mg Enoxaparin Sodium (Lovenox) 40 mg SC 0900 [facility] Last Admin: 11/02/17 09:27 Dose: 40 mg Famotidine (Pepcid) 20 mg PO DAILY [facility] Last Admin: 11/02/17 11:08 Dose: Not Given Guaifenesin (Robitussin Sf) 200 mg PO Q4H PRN PRN Reason: Cough Last Admin: 11/01/17 09:31 Dose: 200 mg Guaifenesin (Mucinex) 1,200 mg PO Q12HR [facility] Last Admin: 11/02/17 11:08 Dose: Not Given Hydralazine HCl (Apresoline) 10 mg SLOW IVP Q3H PRN PRN Reason: SBP > 180 Last Admin: 10/31/17 05:15 Dose: 10 mg Dextrose/Sodium Chloride (D5 1/2 Ns) 1,000 mls @ 50 mls/hr IV .Q20H [facility] Last Admin: 11/01/17 16:32 Dose: 1,000 mls Levetiracetam 250 mg/Miscellaneous Medication 1 each/ Sodium Chloride 52.5 mls @ 105 mls/hr IVPB 0000,1200 [facility] Lorazepam (Ativan) 1 mg SLOW IVP Q4H PRN PRN Reason: Anxiety/Agitation Metoprolol Tartrate (Lopressor) 25 mg PO BID [facility] Last Admin: 11/02/17 11:08 Dose: Not Given Ondansetron HCl (Zofran) 4 mg IVP Q6H PRN PRN Reason: Nausea/Vomiting Sodium Chloride (Flush - Normal Saline) 10 ml IVF Q12HR [facility] Last Admin: 11/02/17 09:28 Dose: 10 ml Sodium Chloride (Flush - Normal Saline) 10 ml IVF PRN PRN PRN Reason: Saline Flush
[2017-11-02] MEDS ORDERED: LEVETIRACETAM IVPB SCH (12:00)
[2017-11-02] MEDS ORDERED: NACL IVPB SCH (12:00)
[2017-11-02] MEDS ORDERED: ADMIXTURE FEE IVPB SCH (12:00)
[2017-11-02] MEDS: SODIUM CHLORIDE IVPB SCH ×2 (12:59→23:29)
[2017-11-02] MEDS: Dextrose 5 %-0.45 % NaCl 1,000 ML IV SCH (12:59)
[2017-11-02] MEDS: LEVETIRACETAM IVPB SCH ×2 (12:59→23:29)
[2017-11-02] MEDS: ADMIXTURE FEE IVPB SCH ×2 (12:59→23:29)
[2017-11-02] MEDS: Atorvastatin Calcium 20 MG TAB PO SCH (19:39)
[2017-11-03] MEDS: hydrALAZINE 20 MG/ML VIAL SLOW IVP PRN ×2 (00:05→22:17)
[2017-11-03] MEDS: cloNIDine 0.3mg/24 Hour PATCH TD SCH (08:27)
[2017-11-03] MEDS: Famotidine 20 MG TAB PO SCH (08:28)
[2017-11-03] MEDS: Amlodipine 5 MG TAB PO SCH ×2 (08:31→22:14)
[2017-11-03] MEDS: Aspirin 81 mg Enteric Coated Tablet PO SCH (08:31)
[2017-11-03] MEDS: Metoprolol Tartrate 25 MG TAB PO SCH ×2 (08:31→22:15)
[2017-11-03] MEDS: Enoxaparin Sodium 40 MG/0.4 ML SYRINGE SC SCH (08:33)
[2017-11-03] MEDS: guaiFENesin ER 600 MG TAB PO SCH ×2 (08:33→22:11)
[2017-11-03] MEDS: Dextrose 5 %-0.45 % NaCl 1,000 ML IV SCH (08:46)
[2017-11-03] MEDS: ADMIXTURE FEE IVPB SCH (11:22)
[2017-11-03] MEDS: SODIUM CHLORIDE IVPB SCH (11:22)
[2017-11-03] MEDS: LEVETIRACETAM IVPB SCH (11:22)
--- NOTE | 2017-11-03 12:02 | PDOC.PN ---
- Subjective Encounter Start Date: 11/03/17 Encounter Start Time: 12:01 -: non-verbal Subjective: nsg notes rev, jose ovn, no new issues identified, pt is awake, lying in bed -: responds to verbal stimuli but does not converse - Objective Resuscitation Status: Resuscitation Status FULL:Full Resuscitation Vital Signs & Weight: Vital Signs (12 hours) Temp Pulse Resp BP Pulse Ox 11/03/17 08:00 98.1 F 69 18 99 11/03/17 07:56 98.1 F 69 18 172/80 H 99 11/03/17 04:00 98.7 F 83 18 144/67 H 98 11/03/17 00:05 61 Weight Admit Weight 96 lb Weight 99 lb 6.4 oz Most Recent Monitor Data Heart Rate from ECG 82 NIBP 152/63 NIBP BP-Mean 77 Respiration from ECG 17 SpO2 100 I&O: 11/02/17 11/03/17 11/04/17 06:59 06:59 06:59 Intake Total 1370 650 Output Total 600 250 Balance 770 400 Result Diagrams: 10/31/17 05:23 11/02/17 04:10 Phys Exam - Physical Examination Constitutional: NAD HEENT: PERRLA slightly dry mm Neck: no JVD Respiratory: no wheezing, no rales, no rhonchi, clear to auscultation bilateral Cardiovascular: RRR, no significant murmur, no rub Gastrointestinal: soft, non-tender, no distention, positive bowel sounds Musculoskeletal: no edema, pulses present Dx/Plan (1) Acute hypernatremia Code(s): E87.0 - HYPEROSMOLALITY AND HYPERNATREMIA Status: Acute Comment: Suspect due to dehydration, IVF's, serial Na+, resolved (2) Acute respiratory failure with hypoxia Code(s): J96.01 - ACUTE RESPIRATORY FAILURE WITH HYPOXIA Status: Acute Comment: Extubated 10/28/17 on current 2L NC maintaining O2 sats in upper 90% (3) Lactic acidosis Code(s): E87.2 - ACIDOSIS Status: Acute Comment: Secondary to seizure disorder, resolved (4) New onset seizure Code(s): R56.9 - UNSPECIFIED CONVULSIONS Status: Acute Comment: Keppra 250mg IV q12h, Neurology consult, Ativan prn (5) Acute worsening of stage 3 chronic kidney disease Code(s): N18.3 - CHRONIC KIDNEY DISEASE, STAGE 3 (MODERATE) Status: Acute Comment: Avoid nephrotoxic meds and contrast media, serial creatinine, improving (6) Dehydration Code(s): E86.0 - DEHYDRATION Status: Acute Comment: Continue IVF's (7) Influenza A Code(s): J10.1 - FLU DUE TO OTH IDENT INFLUENZA VIRUS W OTH RESP MANIFEST Status: Acute (8) COPD (chronic obstructive pulmonary disease) Status: Chronic Qualifiers: COPD type: unspecified COPD Qualified Code(s): J44.9 - Chronic obstructive pulmonary disease, unspecified (9) FTT (failure to thrive) in adult Status: Chronic - Plan cont current plan of care, PT/OT, social media senior associate * transition medication regimen to oral * d/w SW re: transfer to SNF * overall guarded retirement prognosis for the patient Review of Systems - Medications/Allergies Allergies/Adverse Reactions: Allergies Allergy/AdvReac Type Severity Reaction Status Date / Time Penicillins Allergy Verified 10/27/17 03:21 Medications: Current Medications Acetaminophen (Tylenol) 650 mg ID Q4H PRN PRN Reason: Headache/Fever or Pain Amlodipine Besylate (Norvasc) 5 mg PO BID [facility] Last Admin: 11/03/17 08:31 Dose: 5 mg Aspirin (Ecotrin) 81 mg PO DAILY [facility] Last Admin: 11/03/17 08:31 Dose: 81 mg Atorvastatin Calcium (Lipitor) 20 mg PO HS [facility] Last Admin: 11/02/17 19:39 Dose: Not Given Clonidine (Shrugyha-Spv-3) 0.3 mg TD Q7DAYS [facility] Last Admin: 11/03/17 08:27 Dose: 0.3 mg Enoxaparin Sodium (Lovenox) 40 mg SC 0900 [facility] Last Admin: 11/03/17 08:33 Dose: 40 mg Famotidine (Pepcid) 20 mg PO DAILY [facility] Last Admin: 11/03/17 08:28 Dose: 20 mg Guaifenesin (Robitussin Sf) 200 mg PO Q4H PRN PRN Reason: Cough Last Admin: 11/01/17 09:31 Dose: 200 mg Guaifenesin (Mucinex) 1,200 mg PO Q12HR [facility] Last Admin: 11/03/17 08:33 Dose: Not Given Hydralazine HCl (Apresoline) 10 mg SLOW IVP Q3H PRN PRN Reason: SBP Greater Than 170 Last Admin: 11/03/17 00:05 Dose: 10 mg Dextrose/Sodium Chloride (D5 1/2 Ns) 1,000 mls @ 50 mls/hr IV .Q20H [facility] Last Admin: 11/03/17 08:46 Dose: 1,000 mls Levetiracetam (Keppra) 250 mg PO BID [facility] Lorazepam (Ativan) 1 mg SLOW IVP Q4H PRN PRN Reason: Anxiety/Agitation Metoprolol Tartrate (Lopressor) 25 mg PO BID [facility] Last Admin: 11/03/17 08:31 Dose: 25 mg Ondansetron HCl (Zofran) 4 mg IVP Q6H PRN PRN Reason: Nausea/Vomiting Sodium Chloride (Flush - Normal Saline) 10 ml IVF Q12HR [facility] Last Admin: 11/03/17 08:33 Dose: Not Given Sodium Chloride (Flush - Normal Saline) 10 ml IVF PRN PRN PRN Reason: Saline Flush
[2017-11-03] MEDS: Atorvastatin Calcium 20 MG TAB PO SCH (22:11)
[2017-11-03] MEDS: levETIRAcetam 500 MG TAB PO SCH (22:15)
[2017-11-04] MEDS: Dextrose 5 %-0.45 % NaCl 1,000 ML IV SCH (03:16)
[2017-11-04] MEDS: hydrALAZINE 20 MG/ML VIAL SLOW IVP PRN (06:38)
[2017-11-04] MEDS: Aspirin 81 mg Enteric Coated Tablet PO SCH (09:20)
[2017-11-04] MEDS: Enoxaparin Sodium 40 MG/0.4 ML SYRINGE SC SCH (09:20)
[2017-11-04] MEDS: levETIRAcetam 500 MG TAB PO SCH (09:20)
[2017-11-04] MEDS: Famotidine 20 MG TAB PO SCH (09:21)
[2017-11-04] MEDS: Metoprolol Tartrate 25 MG TAB PO SCH (09:21)
[2017-11-04] MEDS: Amlodipine 5 MG TAB PO SCH (09:21)
[2017-11-04] MEDS: guaiFENesin ER 600 MG TAB PO SCH (09:21)
[2017-11-04 11:16] VITALS: TEMP 98.9
[2017-11-04 12:02] VITALS: BP 151/67
--- NOTE | 2017-11-05 13:43 | EKG ---
Test Reason : Blood Pressure : / mmHG Vent. Rate : 124 BPM Atrial Rate : 124 BPM P-R Int : 128 ms QRS Dur : 074 ms QT Int : 340 ms P-R-T Axes : 085 035 048 degrees QTc Int : 488 ms Sinus tachycardia Biatrial enlargement Cannot rule out Inferior infarct , age undetermined Abnormal ECG Confirmed by NICOLE RIZVI [id number]), editorial clerk GAUTAM KAM ([id number]) on 11/05/2017 1:43:19 PM Referred By: BELKYS Confirmed By:NICOLE RIZVI
== END 2017-11-04 14:00 | DRG 208 ==
LOC: ERS 22:30 → CCU 10-27 01:27 → 2SE 10-30 19:19 → T4-A 10-31 18:46
PROVIDERS: ADMIT Internal Medicine Infectious Disease; ATTEND Internal Medicine Infectious Disease
PROC: 5A1945Z Respiratory Ventilation, 24-96 Consecutive Hours (ICD-10-PCS; principal; 2017-10-27)
DX: J96.01 Acute respiratory failure with hypoxia (principal); E87.0 Hyperosmolality and hypernatremia; E87.2 Acidosis; E44.0 Moderate protein-calorie malnutrition; J44.9 Chronic obstructive pulmonary disease, unspecified; I13.0 Hypertensive heart and chronic kidney disease with heart failure and stage 1 through stage 4 chronic kidney disease, or unspecified chronic kidney disease; I50.32 Chronic diastolic (congestive) heart failure; Z68.1 Body mass index [BMI] 19.9 or less, adult; G30.9 Alzheimer's disease, unspecified; F02.80 Dementia in other diseases classified elsewhere, unspecified severity, without behavioral disturbance, psychotic disturbance, mood disturbance, and anxiety; N18.3 Chronic kidney disease, stage 3 (moderate); E78.5 Hyperlipidemia, unspecified; F17.210 Nicotine dependence, cigarettes, uncomplicated; G40.901 Epilepsy, unspecified, not intractable, with status epilepticus; E86.0 Dehydration; J10.1 Influenza due to other identified influenza virus with other respiratory manifestations; R62.7 Adult failure to thrive; D64.9 Anemia, unspecified; Z86.73 Personal history of transient ischemic attack (TIA), and cerebral infarction without residual deficits; Z88.0 Allergy status to penicillin; Z79.899 Other long term (current) drug therapy
CPT/HCPCS: 36415; 51702; 70450; 71045; 72125; 80048; 80053; 80306; 80307; 81003; 81015; 82553; 82805; 83605; 83735; 84146; 84443; 84484; 85007; 85025; 85027; 85379; 85610; 85730; 93005; 94002; 94003; 96361; 96374; 99292; A4216; G8978-GP-CN; G8979-GP-CL; G8987-GO-CN; G8988-GO-CN; G8989-GO-CN; G8996-GN-CN; G8997-GN-CK; J0360; J1650; J1953; J2060; J7050; S0028